=== PATIENT | male | born 1950 | race Caucasian/White ===

== ENCOUNTER 2016-09-21 08:46 | Inpatient (IN) | payer OTHER ==
[~2016-09-21] VITALS: Ht 165.1 cm; Wt 69.9 kg
--- NOTE | 2016-09-21 08:54 | NUR ---
65 Y/O MALE C/O DEPRESSION "FOR A WHILE". PT DIFFICULT TO GET ANSWERS OUT OF, VAGUE ANSWERING QUESTIONS. WHEN ASKED ABOUT SI, STATES "I SHOULD". WHEN ASKED ABOUT HI, "IT DIDN'T START THAT WAY BUT IT WILL QUALITY CONTROL MANAGER TO BE YES". PT REPORTS NOT TAKING HIS MEDICINE "CONSISTENTLY". ALSO C/O "VERY LITTLE URINE BEING PRODUCED". PT DENIES DRUG OR ALCOHOL USE. FLAT AFFECT NOTED DOES STATE HE SEES DR BOWLING, "I SEE HER OFTEN SHE WANTS TO SEE ME".
--- NOTE | 2016-09-21 08:58 | NUR ---
PT AMBULATORY TO [facility], WAITING FOR PROVIDER EVALUATION
--- NOTE | 2016-09-21 09:08 | NUR ---
DR ELWIS AT BEDSIDE FOR EVALUATION
--- NOTE | 2016-09-21 09:13 | ED PSYCHIATRIC COMPLAINT ---
See Addendum History of Present Illness General Chief Complaint: Psychiatric Related Complaint Stated Complaint: depression "I HAVE HURT A LOT OF PEOPLE" Source: patient Exam Limitations: acute psychiatric disorder Vital Signs & Intake/Output Vital Signs & Intake/Output Vital Signs Date Time Temp Pulse Resp B/P Pulse O2 O2 Flow FiO2 Ox Delivery Rate 09/21 1445 98.2 100 18 138/68 09/21 1155 98.1 98 18 126/82 94 Room Air 09/21 0853 97.6 114 18 145/94 99 Room Air Allergies Coded Allergies: No Known Allergies (11/12/15) Triage Note: 65 Y/O MALE C/O DEPRESSION "FOR A WHILE". PT DIFFICULT TO GET ANSWERS OUT OF, VAGUE ANSWERING QUESTIONS. WHEN ASKED ABOUT SI, STATES "I SHOULD". WHEN ASKED ABOUT HI, "IT DIDN'T START THAT WAY BUT IT WILL LOGISTICS ADMINISTRATOR TO BE YES". PT REPORTS NOT TAKING HIS MEDICINE "CONSISTENTLY". ALSO C/O "VERY LITTLE URINE BEING PRODUCED". PT DENIES DRUG OR ALCOHOL USE. FLAT AFFECT NOTED DOES STATE HE SEES DR BOWLING, "I SEE HER OFTEN SHE WANTS TO SEE ME". Triage Nurses Notes Reviewed? yes HPI: Patient presents for evaluation of "mental problems". Patient states he "feels like I have to 09 up to everything". History is very limited as the patient is exhibiting serious psychomotor retardation. He does deny suicidal homicidal ideation he denies hearing voices. He states that he has done "irreparable damage"but does not specify otherwise. He has been compliant with generic Effexor for history of depression and denies alcohol or drug use. Past History Travel History Traveled to [place] past 21 day No Medical History Any Pertinent Medical History? see below for history Neurological: NONE EENT: NONE Cardiovascular: NONE Respiratory: NONE Gastrointestinal: NONE Hepatic: NONE Renal: NONE Musculoskeletal: NONE Psychiatric: depression Endocrine: NONE Blood Disorders: NONE Cancer(s): NONE TILE HELPER/Reproductive: NONE Surgical History Surgical History: non-contributory Psychosocial History What is your primary language Citizen Of [place] Tobacco Use: Never used Family History Hx Contributory? No Review of Systems Review of Systems Constitutional: Reports: no symptoms. EENTM: Reports: no symptoms. Respiratory: Reports: no symptoms. Cardiovascular: Reports: no symptoms. GI: Reports: no symptoms. Genitourinary: Reports: no symptoms. Musculoskeletal: Reports: no symptoms. Skin: Reports: no symptoms. Neurological/Psychological: Reports: see HPI. Hematologic/Endocrine: Reports: no symptoms. Immunologic/Allergic: Reports: no symptoms. All Other Systems: Reviewed and Negative Physical Exam Physical Exam General Appearance: see below Neurological/Psychiatric: see below Comments: General: Alert, calm, cooperative, distant affect at times Head: Normocephalic, atraumatic Eyes: Normal inspection, no nystagmus, EOMI Ears: Normal inspection Nose: Normal inspection Throat: Moist mucosa Neck: Supple, no goiter Heart: Regular rate and rhythm, no murmurs rubs or gallops Lungs: Clear to auscultation bilaterally with good air entry Abdomen: Soft nontender nondistended, normal bowel sounds Chest: Nontender Extremities: Normal range of motion grossly, mild tremors present, no cyanosis clubbing or edema of the upper extremities Neurologic: cranial nerves II through XII grossly intact, speech clear, gait normal Psychiatric: No apparent delusions or hallucinations, no pressured speech, question of thought blocking versus difficulty concentrating as reflected by long pauses to answer questions SAD PERSONS Done? DEFERRED TO CRISIS Progress Differential Diagnosis: acute psychiatric disorder Plan of Care: Orders Procedure Date/time Status ED CRISIS PSYCH CONSULT 09/21 100 Active URINE DRUG SCREEN FOR ER ONLY 09/21 911 Complete TSH REFLEX 09/21 911 Complete ETHANOL 09/21 911 Complete CBC WITHOUT DIFFERENTIAL 09/21 911 Complete BASIC METABOLIC PANEL 09/21 911 Complete Current Medications Sig/Dyllan Start time Last Medication Dose Stop Time Status Admin Olanzapine 10 MG ONCE ONE 09/21 1714 UNVr (ZYDIS (Orally 09/21 1715 disintegrating tabs)) Venlafaxine HCl 75 MG ONCE ONE 09/21 1714 UNVr (Effexor Xr) 09/21 1715 Laboratory Tests 09/21/16 1102: Anion Gap 16, Estimated GFR > 60, BUN/Creatinine Ratio 12.9, Glucose 126 H, Calcium 9.7, TSH &T3 &Free T4 Intrp 0.586, CBC w Diff NO MAN DIFF REQ, RBC 4.71, MCV 90.6, MCH 31.3 H, RDW 13.3, MPV 8.2, Gran % 64.5, Lymphocytes % 27.7, Monocytes % 7.1, Eosinophils % 0.2, Basophils % 0.5, Absolute Granulocytes 4.4, Absolute Lymphocytes 1.9, Absolute Monocytes 0.5, Absolute Eosinophils 0, Absolute Basophils 0, PUBS MCHC 34.5, Serum Alcohol < 10.0 09/21/16 0917: Urine Opiates Screen < 100.00, Methadone Screen < 40, Barbiturate Screen < 60, Ur Phencyclidine Scrn < 6.00, Amphetamines Screen < 100, U Benzodiazepines Scrn < 85, Urine Cocaine Screen < 50, Urine Cannabis Screen < 5.00 Comments: 09/21/2016 3:15:37 PM I HAVE UPDATED MARLEN ON TEST RESULTS. VERY BUSY DAY TODAY. EXPECTING ADDITIONAL CRISIS CLINICIANS SHORTLY. 09/21/2016 5:00:50 PM patient has been evaluated by the residential designer. Likely to be admitted. 09/21/2016 5:10:07 PM PT TO BE MEDICATED AND REEVALUATED AM. Departure Departure Disposition: STILL A PATIENT Condition: Stable Clinical Impression Primary Impression: Depression Referrals: CHEY ALTAMIRANO,ENRRIQUE Lowe (PCP/Family) Departure Forms: Customer Survey General Discharge Information
--- NOTE | 2016-09-21 09:20 | NUR ---
COLLECTED PATIENT'S URINE AND SENT TO LAB PATIENT REFUSING TO HAVE HIS BLOOD DRAWN.
--- NOTE | 2016-09-21 10:58 | NUR ---
PT CONTINUES TO REFUSE BLOODWORK FROM [facility] STAFF [employer]BERS. DR LEWIS AWARE AND AT BEDSIDE. SPEAKING WITH PT.
--- NOTE | 2016-09-21 11:00 | NUR ---
PT NOW AGREEABLE FOR BLOODWORK, KESHAV SY AT BEDSIDE FOR BLOOD DRAW.
--- NOTE | 2016-09-21 11:05 | NUR ---
BLOOD DRAWN AND SENT TO LAB 2 SST 1 LAV
[2016-09-21 11:10] LABS: ABSOLUTE BASOPHIL COUNT 0 /CUMM (0.0-0.2); ABSOLUTE EOSINOPHIL COUNT 0 /CUMM (0.0-0.7); ABSOLUTE GRANULOCYTE CT 4.4 /CUMM (1.4-6.5); ABSOLUTE LYMPH COUNT 1.9 /CUMM (1.2-3.4); ABSOLUTE MONOCYTE COUNT 0.5 /CUMM (0.10-0.60); BASOPHIL % 0.5 % (0.0-2.0); EOSINOPHIL % 0.2 % (0-5); GRANULOCYTE % 64.5 % (42.2-75.2); HEMATOCRIT 42.7 % (42-52); MEAN CORPUSCULAR HGB 31.3 PG (27.0-31.0); MEAN CORPUSCULAR HGB CONC 34.5 G/DL (33.0-37.0); MEAN CORPUSCULAR VOLUME 90.6 FL (80.0-94.0); MEAN PLATELET VOLUME 8.2 FL (7.4-10.4); PLATELET COUNT 371 /CUMM (130-400); RBC DISTRIBUTION WIDTH 13.3 % (11.5-14.5); RED BLOOD CELL CT 4.71 /CUMM (4.70-6.10); WHITE BLOOD CELL COUNT 6.8 /CUMM (4.8-10.8)
--- NOTE | 2016-09-21 13:48 | ED PSY CRISIS COLLATERAL NOTE ---
Collateral Note Collateral Note Family/Inform/Leslee Contacts: The patient has been with [facility] since August of 2013. SW attempted to gain collateral from Alysia Go and Dr. Samano. Alysia reports that she does not know this patient well and the last time she covered an outpatient group, he did not show up. Dr. Samano is familiar with the patient and believes that they have made some recent medication adjustments and that he may be psychotic at this time. Dr. Samano is going to take a look at her records and call Crisis back with further collateral.
--- NOTE | 2016-09-21 15:51 | NUR ---
ASSUMED CARE OF THIS PT PER RN PAT, PT HESITANT TO SPEAK WITH THIS RN, PT STATES "I SI BUT I DONT HAVE A PLAN AND I THINK ABOUT HURTING PEOPLE SOMETIMES BUT IT HASNT GOTTEN TO THAT POINT YET". PT QUIET AND STATES HE HAS NOT BEEN COMPLIANT WITH HIS MEDICATIONS. PT RESTING ON STRETCHER LEAL E, WILL CONTINUE TO MONITOR, SITTER IN PLACE IN
--- NOTE | 2016-09-21 16:03 | NUR ---
PT MOVED TO RM 15.
--- NOTE | 2016-09-21 16:52 | ED PSYCH CRISIS CONSULTATION ---
See Addendum Crisis Consult Basic Assessment Date of Consult: 09/21/16 Responsible Person/Accompanied By: self Insurance Authorization: Insurance #1: Insurance name: [employer] Phone number: Policy number: [id number] Group number: [id number] Authorization number: ED Provider: Patient's ED Provider: PHOENIX LEWIS MD Primary Care Physician: Patient's PCP: ENRRIQUE GUERRIER MD PCP's Current Psychiatrist: Soco Samano MD Chief Complaint: Psychiatric Related Complaint Patient's Quote: i made a lot of bad decisions Present Illness: Pt is a 65 yo male presenting at [facility] ED this morning with complaints of increasing depression and feeling guilty. He reports prior SI and a [facility] admission in 2007. He has been active in [facility] for several years and is treated by Dr Samano. Pt also expresses vague statements that he may hurt others and has made major bad financial decisions. When asked what kind of help he was looking for when he came to ED he responded " I need to go to [facility]". Pt clarified that he didn't think he would hurt anyone physically but is bringing emotional and financial hurt to members of his family. He has a prior diagnosis of MDD with psychosis and is prescribed effexor 225mg with zyprexa d/c in June. he reports he hasn't been taking the effexor consistently. He denies etoh and non-prescription drug use. Pt presents as depressed, flat affect, delayed and vague response to questions, paranoid. He denies AH/VH but appears to be experiencing internal stumuli. He expressed hestitancy about needing an admission but stated he would comply with whatever the dr recommendation. Patient's Address: [address] [place] [id number] Other Phone Number: Who Do You Live With? Patient/Self Family/Informants Interviewed: collateral provided by brother Nahum [phone] and sister Mitzi [phone] Allergies - Coded Allergies: No Known Allergies (11/12/15) Laboratory Results: Laboratory Tests 09/21/16 1102: Anion Gap 16, Estimated GFR > 60, BUN/Creatinine Ratio 12.9, Glucose 126 H, Calcium 9.7, TSH &T3 &Free T4 Intrp 0.586, CBC w Diff NO MAN DIFF REQ, RBC 4.71, MCV 90.6, MCH 31.3 H, RDW 13.3, MPV 8.2, Gran % 64.5, Lymphocytes % 27.7, Monocytes % 7.1, Eosinophils % 0.2, Basophils % 0.5, Absolute Granulocytes 4.4, Absolute Lymphocytes 1.9, Absolute Monocytes 0.5, Absolute Eosinophils 0, Absolute Basophils 0, PUBS MCHC 34.5, Serum Alcohol < 10.0 09/21/16 0917: Urine Opiates Screen < 100.00, Methadone Screen < 40, Barbiturate Screen < 60, Ur Phencyclidine Scrn < 6.00, Amphetamines Screen < 100, U Benzodiazepines Scrn < 85, Urine Cocaine Screen < 50, Urine Cannabis Screen < 5.00 (PRIYA VIVAR LCSW) Past History Past Medical History Neurological: NONE EENT: NONE Cardiovascular: NONE Respiratory: NONE Gastrointestinal: NONE Hepatic: NONE Renal: NONE Musculoskeletal: NONE Psychiatric: depression Endocrine: NONE Blood Disorders: NONE Cancer(s): NONE FITNESS SALES ASSOCIATE/Reproductive: NONE Past Surgical History Surgical History: non-contributory Psychosocial History Strengths/Capabilities: retired/worked 40+ yrs at [employer]. Owns home. Engaged with [employer] for several yrs. Psychiatric Treatment History Psych Treatment Psychiatric Treatment Yes Inpatient Treatment Yes Outpatient Treatment Yes Location of Treatment -[facility] 2007; [facility]-current Reason for Treatment MDD. 2007 SI Response to Treatment has been stable and engaged in [facility] for several yrs. Recently reports inconsistent medication compliance. 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 No substance use. (PRIYA VIVAR LCSW) Current Mental Status Mental Status Orientation: Person, Place, Situation Affect: Anxious, Depressed, Flat Speech: Delayed Neuro-vegetative: Sleep Disturbance Appearance Appearance- Dress/Hygiene: hospital scrubs. wears glasses. Sat upright in consultation rm during evaluation. long pauses in answering questions. denies psychosis but unclear if he is experiencing internal stimuli. Behaviors Thought Process: Irrational (vague answers), Thought Blocking Thought Content: Paranoid, Thought Blocking Memory: Impaired Insight: Poor SI/HI Risk Assessment Past Suicidal Ideation/Attempts Yes (2007 SI/admit to [facility]) Current Suicidal Ideation/Att Yes Past Homicidal Ideation/Att: No Current Homicidal Ideation/Attempts No Degree of Intent: Thoughts/No Intent Danger To: Self Gravely Disabled: Lack of Insight Risk Factors: age (under 24/over 65), high anxiety/distress, history of suicide atmpts, SA/MH hospitalized, lives alone, male Lethality Ratin PTSD Checklist PTSD Done? 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 Family reports pt appeared to be doing well but tends to isolate and maintains a rigid schedule. (PRIYA VIVAR LCSW) Departure Disposition Psych Medical Clearance Date: 09/21/16 Medically Cleared at: 1600 Time Started: 1605 Time Ended: 1645 Psychiatrist Consulted: Soco Samano MD Date Disposition Established: 09/21/16 Time Disposition Established: 171 Plan for Disposition - Modality: H/O re-eval Facility: [facility] Rationale for Disposition: Dr Samano recommends pt be re-started on Zyprexa 10mg and order effexor 75mg. Re- eval pt in am to determine if thought process begins to clear. She reports pt has been doing well so they had recently d/c zyprexa and his psychosis may have returned. Referrals ENRRIQUE GUERRIER MD (PCP/Family) (PRIYA VIVAR LCSW) Disposition Psych Medical Clearance Date: 09/22/16 Medically Cleared at: 0800 Time Started: 0800 Time Ended: 0830 Psychiatrist Consulted: Soco Samano MD Disposition Established: 09/22/16 Time Disposition Established: 0900 Plan for Disposition - Modality: Inpatient Psychiatry Facility: [facility] Rationale for Disposition: Pt is currently exhibiting psychotic sx and expressing thoughts that others wilkl be harmed Type of IP Admission: PEC (JASON HERNANDEZ LCSW) Addendum Addendum Pt was re-evaluated by crisis this morning. Pt continues to thought block. He is barely able to express himself verbally. The words he does express are incomplete sentences. His responses are extremely delayed. Expressions are non- sensical as well as paranoid and delusional in nature. Pt expresses feelings of guilt and worry that others will be harmed. (DAVID YUEN,JASON)
--- NOTE | 2016-09-21 18:39 | NUR ---
PT MEDICATED WITH 75MG EFFEXOR PO AND 10MG ZYDIS PO PER EMAR. PT HAS VISITOR (FRIEND) IN RM WITH PT.
--- NOTE | 2016-09-21 19:30 | NUR ---
PT AWAKE. SITTING ON BED. NO APPARENT DISTRESS. SITTER IN HALLWAY
--- NOTE | 2016-09-21 20:29 | ED PSY CRISIS COLLATERAL NOTE ---
Collateral Note Collateral Note Family/Inform/Leslee Contacts: crisis gathered collateral from pt brother Nahum [phone] and sister Mitzi [phone]. they report being surprised that he is presenting in ED because he has appeared to be doing very well recently. He has consistent contact with his siblings and had visits with both brother and sister over the holidays and appeared fine. They report he retired from [employer] last yr after 40+ yrs and previously was active with [employer] dept. they described him as a bit of a loner "hermit", keeps to himself and maintains a rigid routine. They report he gets a lot of support from his siblings. they report he owns a home and are not aware of him having any significant financial stressors.
--- NOTE | 2016-09-21 20:34 | ED PSY CRISIS COLLATERAL NOTE ---
Collateral Note Collateral Note Family/Inform/Leslee Contacts: collateral from pt brother Rafael - (h)-[phone]/ sharlene (c) [phone]. Rafael and Sharlene in ED visiting pt. Rafael report pt presenting 180 degrees differently from last contact. he reports pt is persverating on financial worries that are not reality based. he reports pt is calling himself the devil. Rafael thinks pt is a grave safety risk and not safe to be discharged. Crisis informed rafael that pt is being h/o and will be re-evaluated in the morning. Rafael stressed that he would like to be in contact with blind aide who evaluates in am.
--- NOTE | 2016-09-21 22:14 | NUR ---
PT SLEEPING. EASILY AROUSED TO VERBAL STIMULATION. RESP UNLABORED. NO APPARENT DISTRESS. SITTER IN HALLWAY
--- NOTE | 2016-09-22 01:27 | NUR ---
PT SLEEPING. RESP UNLABORED. NO APPARENT DISTRESS. SITTER IN HALLWAY
--- NOTE | 2016-09-22 07:25 | NUR ---
ASSUMED CARE OF PT AT THIS TIME. PT SLEEPING ON STRETCHER, REG RESP RATE NOTED. SITTER REMAINS PRESENT. WILL CTM
--- NOTE | 2016-09-22 08:23 | NUR ---
PTS BROTHER ALBERTO WOULD LIKE TO BE CALLED WITH ANY NEW UPDATES [phone]
--- NOTE | 2016-09-22 08:34 | NUR ---
Brother requesting information regarding brother's care and status. Pt does not want information shared at this time. Brother is stating that his brother has not yet been seen and that he can't be released because he is unstable. Brother reassured that patient is safe and being evaluated and that at this time no information couldnt be given due to patient not wanting info shared.
--- NOTE | 2016-09-22 10:15 | NUR ---
REPORT GIVEN TO [facility]
--- NOTE | 2016-09-22 10:15 | NUR ---
PT SHOWERED, ATE BREAKFAST AND TOOK MORNING MEDICATIONS. PT HAS NO COMPLAINTS AT THIS TIME. WILL GIVE REPORT TO [facility]PS
--- NOTE | 2016-09-22 10:42 | IP CRISIS DIAG ASSESS PSYCH ---
Diagnostic Assessment Basic Assessment Insurance Authorization: Insurance #1: Insurance name: [employer]RA Phone number: [phone] Policy number: [id number] Group number: [id number] Authorization number: [id number] Lucian authorized 6 days starting 09/22/16 with review on 09/27/16. Primary Care Physician: Patient's PCP: ENRRIQUE GUERRIER MD PCP's Patient's Quote: i made a lot of bad decisions Present Illness: Pt is a 65 yo male presenting at [facility] this morning with complaints of increasing depression and feeling guilty. He reports prior SI and a [facility] admission in 2007. He has been active in [facility] for several years and is treated by Dr Samano. Pt also expresses vague statements that he may hurt others and has made major bad financial decisions. When asked what kind of help he was looking for when he came to ED he responded " I need to go to halfway". Pt clarified that he didn't think he would hurt anyone physically but is bringing emotional and financial hurt to members of his family. He has a prior diagnosis of MDD with psychosis and is prescribed effexor 225mg with zyprexa d/c in June. he reports he hasn't been taking the effexor consistently. He denies etoh and non-prescription drug use. Pt presents as depressed, flat affect, delayed and vague response to questions, paranoid. He denies AH/VH but appears to be experiencing internal stumuli. He expressed hestitancy about needing an admission but stated he would comply with whatever the dr recommendation. Dr Samano recommends pt be re-started on Zyprexa 10mg and order effexor 75mg. Re- eval pt in am to determine if thought process begins to clear. She reports pt has been doing well so they had recently d/c zyprexa and his psychosis may have returned. crisis gathered collateral from pt brother Nahum [phone] and sister Mitzi [phone]. they report being surprised that he is presenting in ED because he has appeared to be doing very well recently. He has consistent contact with his siblings and had visits with both brother and sister over the holidays and appeared fine. They report he retired from [employer] last yr after 40+ yrs and previously was active with [employer] dept. they described him as a bit of a loner "hermit", keeps to himself and maintains a rigid routine. They report he gets a lot of support from his siblings. they report he owns a home and are not aware of him having any significant financial stressors. collateral from pt brother Rafael - (h)-[phone]/ sharlene (c) [phone]. Rafael and Sharlene in ED visiting pt. Rafael report pt presenting 180 degrees differently from last contact. he reports pt is persverating on financial worries that are not reality based. he reports pt is calling himself the devil. Rafael thinks pt is a grave safety risk and not safe to be discharged. Crisis informed rafael that pt is being h/o and will be re-evaluated in the morning. Rafael stressed that he would like to be in contact with centrifugal wax molder who evaluates in am. PRIYA VIVAR [facility]> 09/21/16 The patient has been with [facility] since August of 2013. SW attempted to gain collateral from Alysia Go and Dr. Samano. Alysia reports that she does not know this patient well and the last time she covered an outpatient group, he did not show up. Dr. Samano is familiar with the patient and believes that they have made some recent medication adjustments and that he may be psychotic at this time. Dr. Samano is going to take a look at her records and call Crisis back with further collateral. JANETT CARDENAS [facility]> 09/21/16 Pt was re-evaluated by crisis this morning. Pt continues to thought block. He is barely able to express himself verbally. The words he does express are incomplete sentences. His responses are extremely delayed. Expressions are non- sensical as well as paranoid and delusional in nature. Pt expresses feelings of guilt and worry that others will be harmed. Case reviewed with Dr. Samano and pt will be admitted to [facility] on a PEC. Pt's brother Rafael notified. Information on diagnostic assessment is limited due to pt's inability to answer questions due to his thought blocking. JASONHUBER WYLIEJORGE L [facility]> 01/06/17 Patient's Address: [address] [place] [id number] Other Phone Number: Who Do You Live With? Patient/Self Primary Language? Cymraes Family/Informants Interviewed: collateral provided by brother Nahum [phone] and sister Mitzi [phone] Allergies - Coded Allergies: No Known Allergies (11/12/15) Current Medications - No Known Home Medications Past History Abuse/Trauma History Trauma History/Current Trauma: unknown ( ) Psychosocial History Strengths/Capabilities: retired/worked 40+ yrs at [employer]. Owns home. Engaged with [employer] for several yrs. Psychiatric Treatment History Psych Treatment Psychiatric Treatment Yes Inpatient Treatment Yes [place]patient Treatment Yes [facility] [place] Reason for Treatment MDD. 2007 SI Response to Treatment has been stable and engaged in [facility] for several yrs. Recently reports inconsistent medication compliance. Zyprexa d/c June 2016 Diagnosis by History: Major Depressive D/O with psychosis - paranoid Risk Factors: age (under 24/over 65), high anxiety/distress, history of suicide atmpts, SA/MH hospitalized, lives alone, male Substance Use/Abuse History Drug Use/Abuse minimum 12mo Hx Substances Used/Abused No Substance Abuse Treatment Substance Abuse Treatment Past Substance Abuse TX No Current Mental Status Mental Status Orientation: Person, Place, Situation Affect: Anxious, Depressed, Flat Speech: Delayed Neuro-vegetative: Sleep Disturbance Appearance Appearance- Dress/Hygiene: hospital scrubs. wears glasses. Sat upright in consultation rm during evaluation. long pauses in answering questions. denies psychosis but unclear if he is experiencing internal stimuli. Behaviors Thought Process: Irrational (vague answers), Thought Blocking Thought Content: Paranoid, Thought Blocking Memory: Impaired Insight: Poor SI/HI Risk Assessment - Minimum 6mo History- Past Suicidal Ideation/Attempts Yes (2007 SI/admit to [facility]) Current Suicidal Ideation/Att Yes Past Homicidal Ideation/Att: No Current Homicidal Ideation/Attempts No Degree of Intent: Thoughts/No Intent Danger To: Self Gravely Disabled: Lack of Insight Risk Factors: age (under 24/over 65), high anxiety/distress, history of suicide atmpts, SA/MH hospitalized, lives alone, male Lethality Ratin Needs/Init TX Plan/Goals: safety and stabilization of sx, individual group and family therapy med eval. AUDIT-C Questionnaire: AUDIT-C Questionnaire: Response Value ETOH use in the past year Never 0 # drinks typical/day Doesn't Drink 0 6 or > drinks per occasion Never 0 Total 0 DSM5/PS Stressors/Medical Prob Diagnosis' (DSM 5, Stressors, Medical): Unspecified Schizophrenia Spectrum and other Psychotic Disorders F29, Major Depressive Disorder 296.2/f32.3 financial Current GAF: 30 Comments: Pt has been alf active [facility] and recently had Zyprexa d/c. Family reports pt appeared to be doing well but tends to isolate and maintains a rigid schedule.
--- NOTE | 2016-09-22 11:05 | SOCIAL WORKER SOCIAL HX PSYCH ---
Social History Basic Assessment Insurance Authorization: Insurance #1: Insurance name: [employer]RA Phone number: Policy number: [id number] Group number: [id number] Authorization number: Curr Source of Income/Entitlements: retired Primary Care Physician: Patient's PCP: ENRRIQUE GUERRIER MD PCP's Present Problem: Pt is a 65 yo male presenting at [facility] this morning with complaints of increasing depression and feeling guilty. He reports prior SI and a [facility] admission in 2007. He has been active in [facility] for several years and is treated by Dr Samano. Pt also expresses vague statements that he may hurt others and has made major bad financial decisions. When asked what kind of help he was looking for when he came to ED he responded " I need to go to half-way". Pt clarified that he didn't think he would hurt anyone physically but is bringing emotional and financial hurt to members of his family. He has a prior diagnosis of MDD with psychosis and is prescribed effexor 225mg with zyprexa d/c in June. he reports he hasn't been taking the effexor consistently. He denies etoh and non-prescription drug use. Pt presents as depressed, flat affect, delayed and vague response to questions, paranoid. He denies AH/VH but appears to be experiencing internal stumuli. He expressed hestitancy about needing an admission but stated he would comply with whatever the dr recommendation. Dr Samano recommends pt be re-started on Zyprexa 10mg and order effexor 75mg. Re- eval pt in am to determine if thought process begins to clear. She reports pt has been doing well so they had recently d/c zyprexa and his psychosis may have returned. crisis gathered collateral from pt brother Nahum [phone] and sister Mitzi [phone]. they report being surprised that he is presenting in ED because he has appeared to be doing very well recently. He has consistent contact with his siblings and had visits with both brother and sister over the holidays and appeared fine. They report he retired from [employer] last yr after 40+ yrs and previously was active with [employer] dept. they described him as a bit of a loner "hermit", keeps to himself and maintains a rigid routine. They report he gets a lot of support from his siblings. they report he owns a home and are not aware of him having any significant financial stressors. collateral from pt brother Rafael - (h)-[phone]/ sharlene (c) [phone]. Rafeal and Sharlene in ED visiting pt. Rafael report pt presenting 180 degrees differently from last contact. he reports pt is persverating on financial worries that are not reality based. he reports pt is calling himself the devil. Rafael thinks pt is a grave safety risk and not safe to be discharged. Crisis informed rafael that pt is being h/o and will be re-evaluated in the morning. Rafael stressed that he would like to be in contact with factory supervisor who evaluates in am. PRIYA VIVAR [facility]> 09/21/16 The patient has been with [facility] since August of 2013. SW attempted to gain collateral from Alysia Go and Dr. Samano. Alysia reports that she does not know this patient well and the last time she covered an outpatient group, he did not show up. Dr. Samano is familiar with the patient and believes that they have made some recent medication adjustments and that he may be psychotic at this time. Dr. Samano is going to take a look at her records and call Crisis back with further collateral. JANETT CARDENAS [facility]> 09/21/16 Pt was re-evaluated by crisis this morning. Pt continues to thought block. He is barely able to express himself verbally. The words he does express are incomplete sentences. His responses are extremely delayed. Expressions are non- sensical as well as paranoid and delusional in nature. Pt expresses feelings of guilt and worry that others will be harmed. Case reviewed with Dr. Samano and pt will be admitted to [facility] on a [facility]. Pt's brother Rafael notified. Information on social hx is very limited due to pt's inability to answer questions due to his thought blocking. JASON HERNANDEZ [facility]> 09/22/16 Primary Language? [place] Island[place] Language(s) Spoken At Home: [place] Living Situation Rents or Owns Home? owns Other Living Arrangement: lives alone Allergies - Coded Allergies: No Known Allergies (11/12/15) Current Medications - No Known Home Medications Past History Past Medical History Neurological: NONE EENT: NONE Cardiovascular: NONE Respiratory: NONE Gastrointestinal: NONE Hepatic: NONE Renal: NONE Musculoskeletal: NONE Psychiatric: depression Endocrine: NONE Blood Disorders: NONE Cancer(s): NONE BROADCAST PROGRAM DIRECTOR/Reproductive: NONE Past Surgical History Surgical History: non-contributory /Family History Place/Country of Origin: unable to answer due to thought blocking Childhood Family Constellation: unable to answer due to thought blocking Primary Childhood Caretakers: unable to answer due to thought blocking Family Life During Childhood: unable to answer due to thought blocking Relationship w/Mother: unable to answer due to thought blocking Relationship w/Father: unable to answer due to thought blocking Relationship w/Sibling(s): unable to answer due to thought blocking Relationship w/Friends: unable to answer due to thought blocking Family Psych/Sub Abuse/Add Hx: unable to answer due to thought blocking Abuse/Trauma History Trauma History/Current Trauma: unknown (unable to answer) Legal History Current Legal Status: unknown Pending Court Dates: unknown Psychosocial History Primary Support System: sibling(s) Strengths/Capabilities: retired/worked 40+ yrs at [employer]. Owns home. Engaged with [employer] for several yrs. Weaknesses: unable to answer due to thought blocking Physical Limitations (Interventions): none reported Last Physical: unknown ADL Limitations: none reported Petty/Social/Peer Relations unable to answer due to thought blocking Meaningful Activities: unable to answer due to thought blocking Childhood Restorationist: Taoist Current Sikhism Affiliation: Taoist Is Spirituality Important to You? unable to answer due to thought blocking Cultural/Ethnic Issues: unknown Milestones Achieved: fine motor, gross motor Psychiatric Treatment History Psych Treatment Inpatient Treatment Yes Outpatient Treatment Yes Location of Treatment -[facility]; [facility]-current Reason for Treatment MDD. 2007 SI Response to Treatment has been stable and engaged in [employer] for several yrs. Recently reports inconsistent medication compliance. Zyprexa d/c June 2016 Diagnosis: Major Depressive D/O with psychosis - paranoid Risk Factors: age (under 24/over 65), high anxiety/distress, history of suicide atmpts, SA/MH hospitalized, lives alone, male Education History HX of Learning Difficulties: None reported Barriers to Learning: None reported Special Communication Needs: None reported Employment History Employment Retired Current Mental Status Problem List: 1. Depression Mental Status Orientation: Person, Place, Situation Affect: Anxious, Depressed, Flat Speech: Delayed Neuro-vegetative: Sleep Disturbance Appearance Appearance- Dress/Hygiene: hospital scrubs. wears glasses. Sat upright in consultation during evaluation. long pauses in answering questions. denies psychosis but unclear if he is experiencing internal stimuli. Behaviors Thought Process: Irrational (vague answers), Thought Blocking Thought Content: Paranoid, Thought Blocking Memory: Impaired Insight: Poor SI/HI Risk Assessment Past Suicidal Ideation/Attempts Yes (2007 SI/admit to [facility]) Current Suicidal Ideation/Att Yes Past Homicidal Ideation/Att: No Current Homicidal Ideation/Attempts No Degree of Intent: Thoughts/No Intent Danger To: Self Gravely Disabled: Lack of Insight Risk Factors: High Anxiety/Distress, SA/MH Hospitalization(s), Lives alone, Male Lethality Ratin - Conclusion and Recommendations for treatment - and discharge planning Summary: Pt is a 65 yo male presenting at [facility] this morning with complaints of increasing depression and feeling guilty. He reports prior SI and a [facility] admission in 2007. He has been active in [facility] for several years and is treated by Dr Samano. Pt also expresses vague statements that he may hurt others and has made major bad financial decisions. When asked what kind of help he was looking for when he came to ED he responded " I need to go to half-way". Pt clarified that he didn't think he would hurt anyone physically but is bringing emotional and financial hurt to members of his family. He has a prior diagnosis of MDD with psychosis and is prescribed effexor 225mg with zyprexa d/c in June. he reports he hasn't been taking the effexor consistently. He denies etoh and non-prescription drug use. Pt presents as depressed, flat affect, delayed and vague response to questions, paranoid. He denies AH/VH but appears to be experiencing internal stumuli. He expressed hestitancy about needing an admission but stated he would comply with whatever the dr recommendation. Dr Samano recommends pt be re-started on Zyprexa 10mg and order effexor 75mg. Re- eval pt in am to determine if thought process begins to clear. She reports pt has been doing well so they had recently d/c zyprexa and his psychosis may have returned. crisis gathered collateral from pt brother Nahum [phone] and sister Mitzi [phone]. they report being surprised that he is presenting in ED because he has appeared to be doing very well recently. He has consistent contact with his siblings and had visits with both brother and sister over the holidays and appeared fine. They report he retired from [employer] last yr after 40+ yrs and previously was active with [employer] dept. they described him as a bit of a loner "hermit", keeps to himself and maintains a rigid routine. They report he gets a lot of support from his siblings. they report he owns a home and are not aware of him having any significant financial stressors. collateral from pt brother Rafael - (h)-[phone]/ sharlene (c) [phone]. Rafael and Sharlene in ED visiting pt. Rafael report pt presenting 180 degrees differently from last contact. he reports pt is persverating on financial worries that are not reality based. he reports pt is calling himself the devil. Rafael thinks pt is a grave safety risk and not safe to be discharged. Crisis informed rafael that pt is being h/o and will be re-evaluated in the morning. Rafael stressed that he would like to be in contact with factory supervisor who evaluates in am. PRIYA VIVAR [facility]> 09/21/16 The patient has been with [facility] since August of 2013. SW attempted to gain collateral from Alysia Go and Dr. Samano. Alysia reports that she does not know this patient well and the last time she covered an outpatient group, he did not show up. Dr. Samano is familiar with the patient and believes that they have made some recent medication adjustments and that he may be psychotic at this time. Dr. Samano is going to take a look at her records and call Crisis back with further collateral. JANETT CARDENAS [facility]> 09/21/16 Pt was re-evaluated by crisis this morning. Pt continues to thought block. He is barely able to express himself verbally. The words he does express are incomplete sentences. His responses are extremely delayed. Expressions are non- sensical as well as paranoid and delusional in nature. Pt expresses feelings of guilt and worry that others will be harmed. Case reviewed with Dr. Samano and pt will be admitted to [facility] on a PEC. Pt's brother Rafael notified. Information on social hx is very limited due to pt's inability to answer questions due to his thought blocking. JASON HERNANDEZ TECHNIC[facility]> 09/22/16
--- NOTE | 2016-09-22 11:06 | NUR ---
DISTRIBUTION HERE TO TRANSPORT PT
[2016-09-22] MEDS ORDERED: CRESTOR20 M2 PO (11:58)
[2016-09-22] MEDS ORDERED: ZETIA10 M1 PO ×2 (11:59→20:32)
[2016-09-22] MEDS ORDERED: EFFEXOR XR75 M1 PO ×2 (12:01→20:38)
[2016-09-22] MEDS ORDERED: ZYPREXA2.5 M1 PO (12:02)
--- NOTE | 2016-09-22 12:34 | NUR ---
65 Y/O MALE ADMITTED ON PEC TO [facility].. PT IS SEEN IN OUT PT BY DR BOWLING FOR DEPRESSION BUT RECENTLY PT HAS PRESENTED DISORGANIZED AND PARANOID WITH THOUGHTS THAT PEOPLE ARE OUT TO GET HIM OR THAT PEOPLE ARE GOING TO GET HURT. HE IS NOT SPECIFIC ABOUT WHICH PEOPLE AND HE HAS NO SPECIFIC PLAN. HE DENIES SUICIDAL IDEATION AT THIS TIME. HIS RESPONSES ARE SLOWED AND HE APPEARS TO BE THOUGHT BLOCKING. HE DENIED AH ALTHOUGH HE APPEARS DISTRACTED. HE STATES IT IS HIS OWN VOICE IN HIS HEAD. HE IS CALM AND COOPERATIVE WITH THE ADMISSION INTERVIEW. VSS.DR GUERRIER OFFICE NOTIFIED OF NEED FOR H&P
[2016-09-22 12:44] VITALS: BP 140/69
[2016-09-22 16:11] VITALS: BP 136/78
[2016-09-22 19:44] VITALS: BP 157/83
[2016-09-22] MEDS ORDERED: LIPITOR40 M1 PO (20:35)
[2016-09-22] MEDS ORDERED: ZYPREXA10 M1 PO (20:37)
--- NOTE | 2016-09-22 21:09 | CPS MD/APRN INITIAL ASSE PSYCH ---
Psychiatric Admission Paint Prep Technician's Note Reviewed: Yes Patient Seen and Examined: Yes Identifying Information: 65 yo retired, male, domiciled, living alone in his own home. Chief Complaint: "I did a terrible thing" Reaction to Hospitalization: passive History of Present Illness Onset of Illness: After the Holidays the patient became behaving in a bizarre way, sayng that he did a terrible thing, that something bad is going to happen to a lot of people because of it, staring into space, isolating, with limited amount of speech. Circumstances Leading to Admission: the patient spent the Holidays withhis family and appeared well to them . He came on his own to the ED with the complaint noted. We discontinued Zyprexa, which he had been taking for years ,in Jun.(gradual decrease w/o any difficulty starting March.)because he had been doing very well for more than 1 year. Per band tier's note he has not been taking the Effexor regularly-has been stable on it for a long time Problem(s) Justifying Need for Admission: -thought blocking -feelings of guilt and shame -intense fear -isolation,suicidal ideation Other HPI: as noted Past Psychiatric History Past Diagnosis(es)- if any: MDD,Recurrent,with psychotic features Alcohol use disorder in complete, stable remission Past Precipitating Factors- if any: work related stressors, usp causing increased worry and depression - Include inpatient and outpatient treatment Treatment History: inpatient at in 2007, attnded IOP and OPS thereafter History of Suicide Attempts or Gestures denies Substance Abuse History: alcohol use disordr in complete,stable remission Allergies: Coded Allergies: No Known Allergies (11/12/15) Home Med List: as noted in the medication reconciliation/crisis assesment - Include any medical condition(s) that may - impact the patient's recovery/remission Past Medical History: hypercholesterolemia Past History Medical History Any Pertinent Medical History? unobtainable Blood Transfusion Hx: No Type of Reaction: none Neurological: NONE EENT: NONE Cardiovascular: NONE Respiratory: NONE Gastrointestinal: constipation Hepatic: NONE Renal: NONE Musculoskeletal: NONE Psychiatric: depression Endocrine: NONE Blood Disorders: NONE Cancer(s): NONE PUBLIC HOUSING MANAGER/Reproductive: NONE Other Medical Hx: none History of MRSA: No Active MRSA Infection: No History of VRE: No Active VRE Infection: No History of CDIFF: No Active CDIFF Infection: No Isolation History: Standard Pneumonia Vaccine Status: Unknown if ever received Influenza Vaccine: 07/18/16 Influenza Vaccine Status Given in past- Date Above Surgical History Surgical History: none Psychiatric Family/Social Hx Family History Psychiatric Illness: MDD,recurrent,with psychotic features Substance Use: alcohol-30 years sober Suicides: denies Other Family History: denies Social History Living Situation: lives alone Significant Relationships (family/friends): family,very few friends Education: completed HS Vocation/Occupation: retired Legal: denies Other Social History: Healthly Behaviors Screening Tobacco Screening Tobacco Use from ED Docu: Quit >30 days ago - If tobacco counseling indicated - the following topics are required. - #1 Recognizing dangerous situations. - #2 Coping Skills. - #3 Basic information about quitting. Status of Tobacco Cessation Counseling: N/A B/C NO TOB USE Cessation Med Status: No Tobacco Use last 30d Alcohol Screening - ETOH screen POS if BAL >=80 or Audit-C>= M4/F3 Audit-C Score from Diag Assess: 0 Blood Alcohol Level: Lab Laboratory Tests 09/21 1102 Toxicology Serum Alcohol (<10 MG/DL) < 10.0 Alcohol Use Screening Results: Neg per Audit C &/or BAL - If ETOH counseling indicated - the following topics are required. - #1 Express concern about the patient's - drinking at unhealthy levels, include informing - of national norms for moderate drinking: - men <= 14 drinks/week, max 4 drinks/occasion - women <= 7 drinks/week, max 3 drinks/occasion - #2 Providing feedback, including linking alcohol to - negative physical effects (liver injury, hypertension) - negative emotional effects (relationship problems and - depression) - negative occupational consequences (reduced work - performance) - #3 Advising the patient to abstain from alcohol or - to drink below national norms for moderate drinking - (as listed above). Status of ETOH Use Counseling: N/A B/C NO ETOH Use Metabolic Screening - Screen if on a Neuroleptic Medication - Metabolic screening should include: - Blood Pressure, BMI, Glucose or Hgb A1c, & a - Lipid profile from within the past 365 days. Metabolic Screening () Not Applicable, patient not on a neuroleptic. OR ([x]) Patient on a neuroleptic(s) . Enter below results for Glucose or Hemoglobin A1C, and lipid panel if obtained during the last 365 days. BMI: 25.000 Blood Pressure: 157/83 Laboratory Results (If applicable): Lab Cholesterol 187 MG/DL 08/01/16 1010 Cholesterol/HDL Ratio 4 % 08/01/16 1010 HDL Cholesterol 45 mg/dL 08/01/16 1010 LDL Cholesterol, Calc 99 mg/dL 08/01/16 1010 Triglycerides 217 mg/dL H 08/01/16 1010 Hgb A1c and glucose ordered Exam and Plan Mental Status Examination Ambulation Status: ambulates w/o assistance Appearance: 65 yo CM looking stated age, with white, dirty hair, white stuble, wearing glasses, sitting very upright in thr chair, rigidly imobile, fixed stare, red, tired eyes, rarely blinking. Wears white T-shirt, training pants appearing too large, both items clean Attitude towards examiner: initially frightened, less so in time Psychomotor activity: very slow, appears catatonic almost Behavior: scared, paranoid, guarded Quality of speech: delayed, very simple sentences,mostly non-verbal Affect: constricted,flat Mood: anxious and depressed Suicidal Ideation: passive-at the question "are you thinking of killing yourself" answers :"I wish I had"States and also believes that he will not hurt himself in the hospital. 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" Hallucinations: denies Paranoid/Delusional Material: -the patient believes that everybody hates him and want him because he did somathing terrible, very wrong -moves his stare rapidly at noises/background movement -says that every body and everything is scaring him Difficulties with thought organization: thought blocking, povery of thought Insight: poor Judgment: poor Orientation: to time,place,person Cognition: unable to asses, refuses/not able to answer specific questions Memory Function: unable to asses Estimate of intellectual functioning: average by history Assets/Strengths Patient Identified Assets/Strengths: unable to respond Impression/Plan - Include all active medical diagnosis that require tx DSM 5 Diagnosis(es): MDD,Recurrent, Severe, with psychotic features Schizoid PD FLEX Stressors include social isolation, medication changes/not taking the medication as prescribed(omitting doses). has increased colesterol -stable with medication mangement GAF23% - Initial Tx Plan for Active Psych & Medical Conditions Treatment Plan: The patient will be monitored on the unit for safety, psychosis, mood disorder. Symptom management with medication. He will participate in groupand individual therapy, behavioral and social interventions. Will participate in developing appropriate discharge planning. - Factors that would help patient function - in a less restrictive setting. Factors: The patient will be psychosis free, without SI/HI and reduced anxirty and depression in order to be transferred to a lower level of care.
--- NOTE | 2016-09-22 21:25 | NUR ---
PT HAS BEEN QUIET FOR THE MAJORITY OF SHIFT, ACTING VERY ISOLATIVE, THOUGH IN [place] BUT STAYING BY SELF, WITHDRAWN AND NOT INTERACTING WITH PEERS. PT WILL RESPOND IF DIRECTLY ENGAGED BUT COMMUNICATES IN SHORT PHRASES AND VERY QUIETLY. PT MOOD IS STABLE, AFFECT IS FLAT/CONSTRICTED, NUTRITION IS NORMAL. PT DENIES SI AT THIS TIME.
[2016-09-23 08:09] VITALS: BP 151/65
--- NOTE | 2016-09-23 10:12 | NUR ---
DR. GUERRIER OFFICE RENOTIFIED FOR H&P.
--- NOTE | 2016-09-23 10:16 | NUR ---
THIS RN SPOKE WITH DR. GUERRIER AT THIS TIME AND REMINDED OF THE H&P, NO FURTHER ORDERS AT THIS TIME.
[2016-09-23 12:21] VITALS: BP 151/88
--- NOTE | 2016-09-23 12:56 | CP SOUTH PROGRESS NOTE PSYCH ---
Psych (Inpt) Progress Note Progress Note Include the following elements, when applicable: Involvement in the active treatment of the patient with behavioral observations of the patient and the patient's response to the treatment. Review of the ongoing treatment process in the context of the treatment plan. Indication of how multi-disciplinary staff members are carrying out the treatment plan. Plans for future interventions and recommendations for revision of the treatment plan. Liaison with other physicians/providers. Progress Note: Pt reports that he is "not well" today. He notes increasing depression but would not elaborate. He denies SI or HI. Denies AVH or paranoia. He has decided to "keep to himself" while here. He feels that he "made a bad desicion to come here and should have stayed at home. ++thought blocking. Current Medications Sig/Dyllan Start time Last Medication Dose Route Stop Time Status Admin Atorvastatin Calcium 40 MG 1700 09/23 1700 AC PO Ezetimibe 10 MG DAILY 09/23 1000 AC 09/23 PO 0825 Lorazepam 0.5 MG TID 09/22 2200 AC 09/23 PO 09/29 2158 0825 Olanzapine 10 MG AT BEDTIME 09/22 2200 AC 09/22 PO 2141 Patient Medication 1 UNIT ONE NR 09/22 2100 RI Teaching ED 09/22 2130 Venlafaxine HCl 225 MG DAILY 09/23 1000 AC 09/23 PO 0825 Laboratory Tests 09/21/16 1102: Anion Gap 16, Estimated GFR > 60, BUN/Creatinine Ratio 12.9, Glucose 126 H, Calcium 9.7, TSH &T3 &Free T4 Intrp 0.586, CBC w Diff NO MAN DIFF REQ, RBC 4.71, MCV 90.6, MCH 31.3 H, RDW 13.3, MPV 8.2, Gran % 64.5, Lymphocytes % 27.7, Monocytes % 7.1, Eosinophils % 0.2, Basophils % 0.5, Absolute Granulocytes 4.4, Absolute Lymphocytes 1.9, Absolute Monocytes 0.5, Absolute Eosinophils 0, Absolute Basophils 0, PUBS MCHC 34.5, Serum Alcohol < 10.0 09/21/16 0917: Urine Opiates Screen < 100.00, Methadone Screen < 40, Barbiturate Screen < 60, Ur Phencyclidine Scrn < 6.00, Amphetamines Screen < 100, U Benzodiazepines Scrn < 85, Urine Cocaine Screen < 50, Urine Cannabis Screen < 5.00 Vital Signs Result Date Time B/P 151/88 09/23 1221 Pulse 90 09/23 1221 Temp 97.3 09/23 0809 Pulse Ox 98 09/22 1107 O2 Delivery Room Air 09/22 1107 Resp 18 09/22 1107 Intake & Output 09/23 0000 09/22 1600 09/22 0800 Intake Total Output Total Balance Patient 154 lb Weight MSE Appears as stated age. Cooperative behavior, good, no eye contact. Nl speech rate and prosody. No psychomotor retardation or agitation. Mood fine Affect flat, constricted, appropriate, non-liable. Linear and goal directed thought process. Denies SI or HI. Does not appear to be responding to internal stimuli however + TB. Denies AVHs, paranoia, though noted to be paranoid by staff, or delusions. I/J: limited A/P: Pt with hx of schizophrenia now with worsening psychosis in the setting of changes to meds when more stable. Pt has decompensated with paranoia, thought blocking, and bizzare behaviors. Restarted on zyprexa dagoberto 10mg nightly Cont home meds
--- NOTE | 2016-09-23 13:40 | NUR ---
PT IS OUT IN COMMUNITY. PT DOES NOT INTERACT MUCH WITH STAFF AND PEERS. PT IS ISOALTIVE TO SELF ON UNIT. PT MOOD IS STABLE WITH A CONSTRICTED AFFECT. PT IS SEEN IN THE LOUNGE STANDING AROUND LOOKING AT THE NURSES STATION. PT IS ATTENDING GROUPS. PT DENIES SI
[2016-09-23 15:41] VITALS: BP 129/82
[2016-09-23 19:47] VITALS: BP 144/81
--- NOTE | 2016-09-23 21:52 | NUR ---
PATIENT IS ALERT AND ORIENTED X3, PLEASANT AND COOPERATIVE WITH TREATMENT PLAN; HE IS QUIET, BUT PRESENT IN [place], WATCHING TV WITH PEERS, CONVERSES WELL; ATTENDED WRAP UP AND TALKED ABOUT VISITING WITH HIS FAMILY; AFFECT SOMEWHAT BLUNTED; HE DENIES S/I AT THIS TIME.
[2016-09-24 07:57] VITALS: BP 140/93
--- NOTE | 2016-09-24 09:03 | PN- Att Addend ---
Attending Addendum Attending Brief Note Medical Atn note Admitted to [facility] for feelinf upset about finances. Current Medications Sig/Dyllan Start time Last Medication Dose Route Stop Time Status Admin Atorvastatin Calcium 40 MG 1700 09/23 1700 AC 09/23 PO 1623 Chlorpromazine 25 MG Q6P PRN 09/23 1400 AC PO Ezetimibe 10 MG DAILY 09/23 1000 AC 09/24 PO 0801 Lorazepam 0.5 MG Q6P PRN 09/23 1400 AC PO 09/30 1359 Lorazepam 1 MG ONCE ONE 09/23 1345 DC 09/23 PO 09/23 1346 1335 Lorazepam 0.5 MG TID 09/22 2200 AC 09/24 PO 09/29 2159 0802 Olanzapine 5 MG ONCE ONE 09/23 1345 DC 09/23 PO 09/23 1346 1337 Olanzapine 5 MG .STK-MED ONE 09/23 1330 DC PO 09/23 1331 Olanzapine 10 MG AT BEDTIME 09/22 2200 AC 09/23 PO 2143 Venlafaxine HCl 225 MG DAILY 09/23 1000 AC 09/24 PO 0801 Vital Signs Date Time Temp Pulse Resp B/P Pulse O2 O2 Flow FiO2 Ox Delivery Rate 09/24 075 96.9 64 140/93 09/23 1947 97.6 95 20 144/81 09/23 1541 92 129/82 09/23 1221 90 151/[address] with current mgt. Assessment/Plan Assessment/Plan Bipolar disorder Consult Acknowledgment - Thank you for your consult request.
[2016-09-24 11:58] VITALS: BP 125/73
--- NOTE | 2016-09-24 13:14 | CP SOUTH PROGRESS NOTE PSYCH ---
Psych (Inpt) Progress Note Progress Note Include the following elements, when applicable: Involvement in the active treatment of the patient with behavioral observations of the patient and the patient's response to the treatment. Review of the ongoing treatment process in the context of the treatment plan. Indication of how multi-disciplinary staff members are carrying out the treatment plan. Plans for future interventions and recommendations for revision of the treatment plan. Liaison with other physicians/providers. Progress Note: Pt eager to speak with provider. He wanted to talk about feeling as though he "comitted a heinous crime" and was going to get in trouble. He was not redirectable around this. He also noted that he did not "feel safe" here and began to look around the office. He would not expand on this but denies SI or HI. He is willing to notify the staff if worried about something and feels that he can trust the staff. He denied having visitors yesterday even though, per RN report, visited by family and was interactive at that time. Pt continues to deny psychotic sx as well as SI or HI. Current Medications Sig/Dyllan Start time Last Medication Dose Route Stop Time Status Admin Atorvastatin Calcium 40 MG 1700 09/23 1700 AC 09/23 PO 1623 Chlorpromazine 25 MG Q6P PRN 09/23 1400 AC PO Ezetimibe 10 MG DAILY 09/23 1000 AC 09/24 PO 0801 Lorazepam 0.5 MG Q6P PRN 09/23 1400 AC 09/24 PO 09/30 1359 1055 Lorazepam 1 MG ONCE ONE 09/23 1345 DC 09/23 PO 09/23 1346 1335 Lorazepam 0.5 MG TID 09/22 2200 AC 09/24 PO 09/29 2159 0802 Olanzapine 15 MG AT BEDTIME 09/24 2200 AC PO Olanzapine 5 MG ONCE ONE 09/23 1345 DC 09/23 PO 09/23 1346 1337 Olanzapine 5 MG .STK-MED ONE 09/23 1330 DC PO 09/23 1331 Olanzapine 10 MG AT BEDTIME 09/22 2200 DC 09/23 PO 2143 Venlafaxine HCl 225 MG DAILY 09/23 1000 AC 09/24 PO 0801 Vital Signs Result Date Time B/P 125/73 09/24 1158 Pulse 88 09/24 1158 Temp 96.9 09/24 0757 Resp 20 09/23 1947 Pulse Ox 98 09/22 110 O2 Delivery Room Air 09/22 1107 MSE Appears as stated age. Cooperative behavior, good, staring eye contact. Nl speech rate and prosody though slow and whispered today more than one day ago. + psychomotor retardation. Mood OK...but... Affect flat, fearful, constricted, inappropriate, non-liable. Linear and goal directed thought process though fixated on this crime that he was commited; ++though blocking. Denies SI or HI. Does not appear to be responding to internal stimuli. Denies AVHs, paranoia, or delusions. I/J: limited A/P: Pt with schizophrenia with worsening psychotic sx leading the admission. He has been reinstated on zyprexa, which was previously helpful for psychosis. - Increase zyprexa from 10mg to 15mg qhs - PRN ativan and thorazine for agitated/extreme paranoia - Cont other med regimen - Pt may benefit from ECT for significant psychosis and depression if does not respond to AP meds - Dispo per primary team
--- NOTE | 2016-09-24 14:28 | NUR ---
PT IS OUT IN COMMUNITY INTERACTING AT TIMES WITH STAFF AND PEERS. PT MOSTLY SITS IN LOUNGE WATCHING THE FISH AND NURSES STATION. PT DID ATTEND PLANNING BUT DID NOT GO TO FOCUS GROUP. PT MOOD IS STABLE WTIH A FLAT AFFECT. PT DENIES SI.
[2016-09-24 16:03] VITALS: BP 147/86
[2016-09-24 19:38] VITALS: BP 140/79
[2016-09-25 08:15] VITALS: BP 145/84
[2016-09-25 12:01] VITALS: BP 131/75
--- NOTE | 2016-09-25 13:12 | NUR ---
PT IS COMPLIANT AND COOPERATIVE. MOOD IS STABLE WITH A FLAT AFFECT. PT DENIES SI AT THIS TIME, NO COMPLAINTS OFFERED. PT NOTED TO BE STARING BLANKLY OFTEN, CAN BE SLOW TO RESPOND AT TIMES. PT IS PRESENT IN THE COMMUNITY, HAS MINIMAL INTERACTION WITH PEERS AND STAFF. PT IS ATTENDING GROUPS. VITALS ARE STABLE, APPETITE IS GOOD. NO SIGNS OF ACTIVE PSYCHOSIS NOTED.
--- NOTE | 2016-09-25 14:38 | SOCIAL WORKER PROG NOTE PSYCH ---
Social Work Progress Note Progress Note SW met with patient for the first time today. Patient presented with very slow and soft speech, poor eye contact and appeared very nervous. He reported feeling "awful" today and stated "I'm not suppose to be here." When asked why he is not suppose to be here he responded stating he "should be locked up." He had a difficult time explaining why but perseverated about fraud relating to social security. Patients sister, Mitzi Pryor, called this manual writer and confirmed that he was stating similar remarks to her and her brother yesterday. She reported that she does not believe he has done anything illegal and is making this story up. She did talk about social security and the last time he worked was in July 2015. She reported that he lives alone and does appear lonely. She believes he ruminates at home and has made this story up for an unknown reason. She would like to come in for a family meeting this week and plans to talk with her brother to confirm day/time they are both available.
--- NOTE | 2016-09-25 14:39 | SOCIAL WORKER TX PLAN PSYCH ---
Treatment Plan - Please Document: - Evidence that there is ongoing collaboration between - the patient and the interdisciplinary team, - including the patient's active participation and - responsibility for engaging in the treatment regimen, - and that the treatment plan is individualized and - relevant to the patient's conditions. - Treatment plan should reflect documentation indicating - that all active therapeutic efforts are included. Strengths/Capabilities: retired/worked 40+ yrs at [employer]. Owns home. Engaged with [employer] for several yrs. Physical Limitations (Interventions): none reported Patient Identified Trmt Goals: "I don't want to be guilty" Discharge Plan: [facility] Problem/Goals #1 Problem #1: suicidal ideation Goal (Short Term): Today I will attend 2 groups Today I will identify 2 stressors Today I will identify 2 positive supports Today I will work on recognizing 3 emotions I am feeling Goal (Order To Delivery Supervisor): Be free of suicidal thoughts/attempts Develop 3 coping skills to deal with depression Identify 3 positive support systems to call in crisis Develop a crisis plan with 3 lennon people Identify 2 positive traits per week about myself Identify 2 things I have to look forward to Identify 2 positive people in my life and 1 thing I appreciate about them Interventions: Learn ways to manage depressive symptoms accordingly and identify positive supports to manage life stressors and mood fluctuations. Modalities: Encourage groups, education on depression, provide CBT treatment, family meeting. DSM5/PS Stressors/Medical Prob Diagnosis' (DSM 5, Stressors, Medical): Unspecified Schizophrenia Spectrum and other Psychotic Disorders F29, Major Depressive Disorder 296.2/f32.3 financial Current GAF: 30 Treatment Team - Responsibilities of members of the treatment team include: - Medication Management- MD or SHOP COOPER - Medication Administration and Monitoring- Nurse - Group Therapy- Occupational Therapist - 1:1 Therapy,Disch Planning,family involvement-[employer]cell Connector Placer
[2016-09-25 15:57] VITALS: BP 141/82
--- NOTE | 2016-09-25 16:02 | CP SOUTH PROGRESS NOTE PSYCH ---
See Addendum Psych (Inpt) Progress Note Progress Note Include the following elements, when applicable: Involvement in the active treatment of the patient with behavioral observations of the patient and the patient's response to the treatment. Review of the ongoing treatment process in the context of the treatment plan. Indication of how multi-disciplinary staff members are carrying out the treatment plan. Plans for future interventions and recommendations for revision of the treatment plan. Liaison with other physicians/providers. Progress Note: [I discussed this patient's progress to date, current mental status, treatment process in the context of the treatment plan, and discharge planning with staff/ team in the daily morning inpatient team meeting. I also met with the patient myself in individual session.] Current Medications Sig/Dyllan Start time Last Medication Dose Route Stop Time Status Admin Atorvastatin Calcium 40 MG 1700 09/23 1700 AC 09/24 PO 1625 Chlorpromazine 25 MG Q6P PRN 09/23 1400 DC PO Ezetimibe 10 MG DAILY 09/23 1000 AC 09/25 PO 0848 Lorazepam 0.5 MG Q6P PRN 09/23 1400 AC 09/24 PO 09/30 1359 1055 Lorazepam 0.5 MG TID 09/22 2200 AC 09/25 PO 09/29 2159 0848 Olanzapine 2.5 MG Q6-PRN PRN 09/25 1030 AC PO Olanzapine 15 MG AT BEDTIME 09/24 2200 AC 09/24 PO 2125 Venlafaxine HCl 225 MG DAILY 09/23 1000 AC 09/25 PO 0848 Vital Signs Date Time Temp Pulse Resp B/P Pulse O2 O2 Flow FiO2 Ox Delivery Rate 09/25 1557 108 141/82 09/25 1201 92 131/75 09/25 0815 96.1 96 145/84 09/24 1938 96.8 98 140/79 09/24 1603 84 147/86 SUBJECTIVE: "I fear being caught." OBJECTIVE: Current Medications Sig/Dyllan Start time Last Medication Dose Route Stop Time Status Admin Atorvastatin Calcium 40 MG 1700 09/23 1700 AC 09/24 PO 1625 Chlorpromazine 25 MG Q6P PRN 09/23 1400 DC PO Ezetimibe 10 MG DAILY 09/23 1000 AC 09/25 PO 0848 Lorazepam 0.5 MG Q6P PRN 09/23 1400 AC 09/24 PO 09/30 1359 1055 Lorazepam 0.5 MG TID 09/22 220 AC 09/25 PO 09/29 2159 0848 Olanzapine 2.5 MG Q6-PRN PRN 09/25 1030 AC PO Olanzapine 15 MG AT BEDTIME 09/24 2200 AC 09/24 PO 2125 Venlafaxine HCl 225 MG DAILY 09/23 1000 AC 09/25 PO 0848 Vital Signs Date Time Temp Pulse Resp B/P Pulse O2 O2 Flow FiO2 Ox Delivery Rate 09/25 1557 108 141/82 09/25 1201 92 131/75 09/25 0715 96.1 96 145/84 09/24 1938 96.8 98 140/79 ASSESSMENT: This was this lead technical writer's first encounter with the patient on [facility]. He presented A& Ox4, depressed, with flat affect. Noted with a vacant stare t/o course of interview. Speech slow and soft. + psychomotor retardation. Thought process and speech were delayed, and his responses to questions were vague and disconnected. He first reported feeling "fearful of being caught." When asked what he would be caught for, he replied "for covering things up." When asked about what he was covering up, the patient replied "is that a legal issue?" Patient would not elaborate beyond these statements. He appeared thought blocking. Denied AVH. At times, appeared responding to internal stimuli. Reported mood as "depressed, anxious, guilty" secondary to his "fear of being caught." ? PI. Denied feeling hopeless, helpless, worthless. Reported + guilt. Patient reported intermittent passive SI, denied plan and intent while in hospital. Patient contracted for safety on unit, trusts staff and is willing to go to staff if feeling unsafe. He reported a prior suicide attempt in 2007 by carbon monoxide poisoning, and reported that if he were not hospitalized at present he might try this again. Patient was unable to report when, why, or how he would act on this. He denied homicidal ideation. Reported sleep and appetite were good. Reported tolerating increase in Zyprexa from 10mg to 15mg at HS. Discussed with patient option of adjuncting Zyprexa with [place] for depression and intermittent passive SI. Reviewed [place] education with the patient, the risks/ benefit/SE profiles. Patient refused trial at present, but elected to consider this. PLAN: 1. Continue monitoring the patient on unit for safety, mood, psychosis, suicidal ideation. 2. Continue current Zyprexa dose at 15mg at HS, as he received first dose last night. Will assess if patient's psychosis improves on current dose, prior to increasing further. 3. Consider adding [place] as adjuct to further target depressed mood and SI. 4. Obtain collateral from outpatient psychiatrist Dr. Donavan Samano. 5. Dispo planning per primary team.
[2016-09-25 20:07] VITALS: BP 141/86
--- NOTE | 2016-09-25 22:43 | NUR ---
Patient is clearing well. Clam and coopertaive. Able to verbalize need. Napped well during shift and up for medication. Speech clear, however is repeating some terms. No issue or complaints to report
[2016-09-26 08:26] VITALS: BP 140/87
--- NOTE | 2016-09-26 10:36 | SOCIAL WORKER PROG NOTE PSYCH ---
Social Work Progress Note Progress Note Met with pt, he was slow to respond, had little eye contact and reports he was "not doing good", he reports he put others at risk for his own benefit, he would not ellaborate beyond that. I encouraged him to attend and utilize group support. Pt states "I have no emotion" Pt denies si/hi/ when asked about hallucinations and trails off and states there are these people and I wonder if they are keeping it together. Otherwise pt offered no complaints.
--- NOTE | 2016-09-26 11:05 | CP SOUTH PROGRESS NOTE PSYCH ---
Psych (Inpt) Progress Note Progress Note Include the following elements, when applicable: Involvement in the active treatment of the patient with behavioral observations of the patient and the patient's response to the treatment. Review of the ongoing treatment process in the context of the treatment plan. Indication of how multi-disciplinary staff members are carrying out the treatment plan. Plans for future interventions and recommendations for revision of the treatment plan. Liaison with other physicians/providers. Progress Note: [I discussed this patient's progress to date, current mental status, treatment process in the context of the treatment plan, and discharge planning with staff/ team in the daily morning inpatient team meeting. I also met with the patient myself in individual session.] SUBJECTIVE: "I feel overwhelmed." OBJECTIVE: Current Medications Sig/Dyllan Start time Last Medication Dose Route Stop Time Status Admin Atorvastatin Calcium 40 MG 1700 09/23 1700 AC 09/25 PO 1713 Ezetimibe 10 MG DAILY 09/23 1000 AC 09/26 PO 0932 Lorazepam 0.25 MG 0800 09/28 08 AC PO 09/28 08 Lorazepam 0.25 MG 08,09/27 0800 AC PO 09/27 2000 Lorazepam 0.25 MG 09/26 AC PO 09/26 2000 Lorazepam 0.5 MG 0800,09/25 DC 09/26 PO 10/02 1959 0932 Lorazepam 0.5 MG Q6P PRN 09/23 1400 AC 09/24 PO 09/30 1359 1055 Lorazepam 0.5 MG TID 09/22 2200 DC 09/25 PO 09/29 2159 1713 Olanzapine 2.5 MG Q6-PRN PRN 09/25 1030 AC 09/25 PO 1712 Olanzapine 15 MG AT BEDTIME 09/24 2200 AC 09/25 PO 2145 Venlafaxine HCl 225 MG DAILY 09/23 1000 AC 09/26 PO 0932 ASSESSMENT: Met with the patient following his visit with his koerht-ib-ner. He presented A& Ox4. Appeared depressed, affect remained flat. Patient had minimal eye contact, but was not noted to be staring blankly throughout interview as noted yesterday. Speech was intermittently fluid, with moments of silence. Continues to thought block, but less than yesterday. Thought process remained somewhat delayed. Continued psychomotor retardation. When asked what made him feel overwhelmed, he reported "Clinton's box has been opened...all of the wrong things I've done have come out." When asked to specify what he meant by this, he reported "I lied to my family that I was able to retire." Patient then reported "financial issues." He would not elaborate beyond that. On encounter, patient reported feeling hopeless and helpless, he denied feeling worthless. He reported depression of 10/10 (10 being the worst), and anxiety of 10/10 (10 being the worst). He reported passive SI, denied plans or intent. He denied homicidal ideation. He denied auditory and visual hallucinations. He did not appear responding to internal stimuli. + PI. ? delusions. Reviewed trial of [place] to target depression and passive SI. Reviewed the risk /benefit/SE profiles of medication with patient who verbalized understanding of education, but was reluctant to trial. Patient reported feeling hopeless that nothing will help him. Patient however was agreeable to considering trial. Will revisit Bussey trial tomorrow morning with patient. PLAN: 1. Start ativan taper to decrease psychomotor retardation -0.5mg QAM/0.25mg QPM (09/26/16), 0.25mg BID (09/27/16), then 0.25mg QAM (), then stop. 2. Continue Zyprexa 15mg at HS for psychosis. Psychosis slowly improving as evidenced by less frequent thought blocking. Utilize prn Zyprexa 2.5mg for psychosis (do not exceed 2 doses in 24 hours). 3. EKG ordered. 4. Revisit trial of [place] tomorrow morning and start if EKG wnl and patient agreeable. 5. Dispo planning per primary team.
[2016-09-26 12:37] VITALS: BP 137/77
--- NOTE | 2016-09-26 14:03 | NUR ---
PT HAS BEEN COMPLIANT WITH HIS MED REGIME AND IS ENCOURAGED TO ATTEND GROUPS. HE IS OBSERVED SITTING BY THE [employer] STARING.HE DENIED SUICIDAL THOUGHTS WHEN ASKED. HE IS CALM AND COOPERATIVE
[2016-09-26 16:03] VITALS: BP 139/79
[2016-09-26 20:01] VITALS: BP 145/84
--- NOTE | 2016-09-26 21:53 | NUR ---
Pt is out in the community mood flat little interaction was observed during the shift. Pt is compliant and cooperative. Vital signs are stable appetite is good. No issues noted during the day. Will continue to monitor the pt overnight.
--- NOTE | 2016-09-26 23:01 | NUR ---
PT ADMITTED TO SI THIS PM. DENIED PLAN. FEELS SAFE. "I WON'T DO ANYTHING TO HARM MYSELF." SAID DEPRESSION WAS " LOW YOU CAN GO." BUT THEN ON SCALE OF 1-10 DEPRESSION "5" AND ANXIETY "10" AND "I'M SAD BUT I DON'T THINK I'M DEPRESSED." SOME THOUGHT BLOCKING NOTED. HESITATED WHEN ASKED IF HE WAS EXPERIENCING AH. DENIED AH. MORE QUICKLY RESPONDED WITH "NO" WHEN ASKED ABOUT VH. AFFECT FLAT. RUMINATING ON DISAPPOINTING FAMILY R/T HIS FINANCES. "THEY WILL NEVER FORGIVE ME." YET, IT IS UNCLEAR WHY FAMILY WOULD BE ANGRY WITH HIM FOR RETIRING EARLY. PT. WITH NO CHILDREN. SAID HE RECEIVES SOCIAL SECURITY CHECK. PT UNABLE TO EXPLAIN EXACTLY WHAT HIS FINANCIAL CONCERNS ARE OR WHY THEY WOULD AFFECT OTHER FAMILY MEMBERS IE SIBLINGS. BEHAVIOR PARANOID, WITHDRAWN, GUURDED, AND SUSPICIOUS. PT ENCOURAGED TO VERBALIZE THOUGHTS AND FEELINGS TO STAFF INCLUDING THANH KHALIL HE ADMITTED THAT EARLIER IN DAY HE WAS EXPERIENCING SI BUT DID NOT DISCLOSE TO THANH. PT MED COMPLIANT WITHOUT RESISTANCE. MOUTH CHECKS BEING DONE WITH MED ADMINISTRATION.
--- NOTE | 2016-09-26 23:27 | NUR ---
PT MOVED FROM END OF LEAL B8 TO B3 WHICH IS CLOSER TO NURSES' STATION.
--- NOTE | 2016-09-27 04:46 | NUR ---
SLEPT WELL NO S/S OF SUICIDAL IDEATION Q 15MIN. CHECKS IN PROGRESS THROUGH OUT SHIFT.
[2016-09-27 07:58] VITALS: BP 150/93
--- NOTE | 2016-09-27 10:58 | CP SOUTH PROGRESS NOTE PSYCH ---
Psych (Inpt) Progress Note Progress Note Include the following elements, when applicable: Involvement in the active treatment of the patient with behavioral observations of the patient and the patient's response to the treatment. Review of the ongoing treatment process in the context of the treatment plan. Indication of how multi-disciplinary staff members are carrying out the treatment plan. Plans for future interventions and recommendations for revision of the treatment plan. Liaison with other physicians/providers. Progress Note: [I discussed this patient's progress to date, current mental status, treatment process in the context of the treatment plan, and discharge planning with staff/ team in the daily morning inpatient team meeting. I also met with the patient myself in individual session.] SUBJECTIVE: "I'm not well." OBJECTIVE: Current Medications Sig/Dyllan Start time Last Medication Dose Route Stop Time Status Admin Atorvastatin Calcium 40 MG 1700 09/23 1700 AC 09/26 PO 1701 Ezetimibe 10 MG DAILY 09/23 1000 AC 09/27 PO 0801 Keo Carbonate 300 MG 0809/28 0800 AC PO Keo Carbonate 300 MG 09/27 2200 AC PO Lorazepam 0.25 MG 09/28 0800 AC PO 09/28 0801 Lorazepam 0.25 MG 0800,09/27 0800 AC 09/27 PO 09/27 2000 08 Lorazepam 0.25 MG 09/26 2000 DC 09/26 PO 09/26 Lorazepam 0.5 MG Q6P PRN 09/23 1400 AC 09/27 PO 09/30 1359 1435 Olanzapine 5 MG 0809/28 0800 AC PO Olanzapine 2.5 MG .STK-MED ONE 09/27 0809 DC PO 09/27 0810 Olanzapine 2.5 MG Q6-PRN PRN 09/25 1030 DC 09/27 PO 1434 Olanzapine 15 MG AT BEDTIME 09/24 2200 AC 09/26 PO 2210 Venlafaxine HCl 225 MG DAILY 09/23 1000 AC 09/27 PO 0801 Vital Signs Date Time Temp Pulse Resp B/P Pulse O2 O2 Flow FiO2 Ox Delivery Rate 09/278 97.2 98 150/93 09/26 2000 97.1 108 145/84 09/26 1603 94 139/79 09/26 1237 100 137/77 09/26/16 EKG: Sinus Rhythm, with rate of 94. Borderline left axis deviation. PR=836 GLe=760 ASSESSMENT: Met with the patient today, who was A&Ox4. Affect remained flat, and mood was "anxious, depressed." Patient continues to appear thought blocking to the same degree as yesterday. Patient was able to respond to direct questions asked, however answers appeared vague and disconnected. He reported "questions continue to trap me, anything that anyone asks me." He could not elaborate on this statement, and was observed sitting in chair for approx 1 minute staring blankly. Patient noted with mildly less psychomotor retardation, observed ambulating with more fluid gait, and less slow to sit and stand up. Speech remains delayed at times. Patient continues to show difficultly articulating his thoughts, but does not appear responding to internal stimuli. He denied AH and VH. + PI that "people are after my money and talking about me." Patient reported the reason for this to be "because I left myself wide open." Patient could not elaborate on this statement, or about who is after his money or talking about him. Patient reported sadness/depression of 10/10 (10 being the worst) and anxiety of 10/10 (10 being the worst). He reported feeling hopeless, helpless, and worthless. He reported "I'm never going to leave here, I'm never going to get better." He reported passive fleeting SI, denied plans or intent. He denied homicidal ideation. Reviewed with patient trial of Keo, the risk/benefit/SE profiles, to target depression/SI/mood stabilization. Patient initially declined trial and reported "it will not work." Keo trial was reviewed during family meeting with sister (Mitzi), and brother (Elfego) who was present via speaker phone. With encouragement from patient's brother and sister, the patient was agreeable to Keo trial. Reviewed with patient that combination of effexor, lithium and zyprexa may increase the risk of serotonin syndrome. Patient verbalized understanding was was agreeable to lithium trial. PLAN: 1. Add Zyprexa 5mg every morning for mood stabilization/psychosis. Continue Zyprexa 15mg at HS. 2. Continue Ativan taper to decrease psychomotor retardation. 3. Start Keo 300mg BID for depression/suicidal ideation. Keo level scheduled on 09/30/16 at 0600. 4. Continue monitoring the patient on unit for safety, suicidal ideation, psychosis, and mood. 5. Monitor for potential of serotonin syndrome. 6. Consider decrease in Effexor, as it may be contributing to delusions/paranoia and anxiety. 7. Dispo planning per primary team. 8. Will continue to monitor QTc, will repeat EKG on 10/02/16.
[2016-09-27 11:58] VITALS: BP 132/76
--- NOTE | 2016-09-27 12:29 | NUR ---
Pt present on the unit and sits by the nurses station/fish tank often and makes needs known to staff, sometimes it does take prompting and questioning, pt appears anxious and guarded yet communicates fairly well. Slept well, attended groups, vital signs stable. Pt did report to staff - thoughts that were bother some and given PRN Zyprexa and met with fair effect, Viri Willis APRN aware and will adjust schedule medication regiment.
[2016-09-27 16:17] VITALS: BP 149/87
--- NOTE | 2016-09-27 18:30 | SOCIAL WORKER PROG NOTE PSYCH ---
Social Work Progress Note Progress Note Patient had family meeting today with his sister Mitzi, phone conferenced in his brother Elfego, this development writer, and Viri Willis APRN. Patients family appear to be great supports for patient and are very concerned with his present state. They described patient as normally very friendly, outgoing, family oriented and adventurous. They reported that he he recently went on a family vacation with his brother and family in April and also recently drove to [place] by himself to visit a family member. They described patient to be highly functioning up until Kaylan with an optimistic and friendly outlook on life. During the meeting patient presented with very flat affect and depressed mood. He continued to express his concerns about committing fraud during his last hospitalization to [facility] in 2007. Patient seems to believe that his last admission was not legitimate and therefore he committed insurance fraud. Patient made comments about the IRS and Social Security coming from him. Patients family tried to reassure him that this was not accurate but patient did not understand. Patient was offerred to start [place] trial while in the hospital and patient agreed he will start. He will receive his first dose this evening. Patients family is aware that at this time we do not have a set discharge date or plan. We plan to regroup next week and discuss patients progress. Patient continues to endorse suicidal thoughts and is not able to contract for safety at this time.
--- NOTE | 2016-09-27 19:02 | SOCIAL WORKER PROG TO GOALS ---
Progress Toward Goals Strengths/Capabilities: retired/worked 40+ yrs at [employer] Owns home. Engaged with lawson [employer]OUR[employer] for several yrs. Physical Limitations (Interventions): none reported Patient Identified Trmt Goals: "I don't want to be guilty" Discharge Plan: IOP Problem/Goals #1 Problem #1: suicidal ideation Goal (Short Term): Today I will attend 2 groups Today I will identify 2 stressors Today I will identify 2 positive supports Today I will work on recognizing 3 emotions I am feeling Goal (Customer Service Officer): Be free of suicidal thoughts/attempts Develop 3 coping skills to deal with depression Identify 3 positive support systems to call in crisis Develop a crisis plan with 3 lennon people Identify 2 positive traits per week about myself Identify 2 things I have to look forward to Identify 2 positive people in my life and 1 thing I appreciate about them Interventions: Learn ways to manage depressive symptoms accordingly and identify positive supports to manage life stressors and mood fluctuations. Progress: Patient continues to endorse +SI and paranoid thinking. Patient is not attending groups on the unit and isolates. Patient did participate in family meeting today and has agreed to trial lithium.
[2016-09-27 19:26] VITALS: BP 147/89
--- NOTE | 2016-09-27 22:00 | NUR ---
PT IS VISIBLE ON UNIT, SITTING IN LOUNGE AND MOSTLY OBSERVING PEERS AND WATCHING TV. MINIMAL INTERACTION WITH PEERS AND STAFF. COOPERATIVE AND COMPLIANT WITH STAFF. ATTENDED WRAP UP MEETING BUT WAS VERY PASSIVE. HAD VISIT FROM FRIEND DURING EVENING. NO COMPLAINTS REPORTED. PT HAS STABLE MOOD AND VERY FLAT AFFECT.
[2016-09-28 07:57] VITALS: BP 136/86
--- NOTE | 2016-09-28 08:57 | CP SOUTH PROGRESS NOTE PSYCH ---
Psych (Inpt) Progress Note Progress Note Include the following elements, when applicable: Involvement in the active treatment of the patient with behavioral observations of the patient and the patient's response to the treatment. Review of the ongoing treatment process in the context of the treatment plan. Indication of how multi-disciplinary staff members are carrying out the treatment plan. Plans for future interventions and recommendations for revision of the treatment plan. Liaison with other physicians/providers. Progress Note: [I discussed this patient's progress to date, current mental status, treatment process in the context of the treatment plan, and discharge planning with staff/ team in the daily morning inpatient team meeting. I also met with the patient myself in individual session.] SUBJECTIVE: "I'm trapped." OBJECTIVE: Current Medications Sig/Dyllan Start time Last Medication Dose Route Stop Time Status Admin Atorvastatin Calcium 40 MG 1700 09/23 1700 AC 09/27 PO 1645 Ezetimibe 10 MG DAILY 09/23 1000 AC 09/28 PO 0802 [place] Carbonate 300 MG 0809/28 0800 AC 09/28 PO 0802 [place] Carbonate 300 MG 09/27 2200 AC 09/27 PO 2135 Lorazepam 0.25 MG 0809/28 0800 DC 09/28 PO 09/28 0801 0802 Lorazepam 0.25 MG 08,09/27 0800 DC 09/27 PO 09/27 2000 194 Lorazepam 0.5 MG Q6P PRN 09/23 1400 AC 09/27 PO 09/30 1359 1435 Olanzapine 5 MG 0800 09/28 0800 AC 09/28 PO 0802 Olanzapine 2.5 MG .STK-MED ONE 09/27 1428 DC PO 09/27 1429 Olanzapine 2.5 MG Q6-PRN PRN 09/25 1030 DC 09/27 PO 1434 Olanzapine 15 MG AT BEDTIME 09/24 2200 AC 09/27 PO 2135 Venlafaxine HCl 225 MG DAILY 09/23 1000 AC 09/28 PO 0802 Vital Signs Date Time Temp Pulse Resp B/P Pulse O2 O2 Flow FiO2 Ox Delivery Rate 09/28 0757 96.8 88 136/86 09/27 1926 96.6 104 147/89 09/27 1617 100 149/87 09/27 1158 92 132/76 ASSESSMENT: On encounter today, patient presented A&Ox4. Appeared somewhat disheveled. Spoke to nursing regarding ADL attendance. Per nursing patient requires ADL assistance. Eye contact was fixed, and appeared staring blankly toward promotion writer. Patient making slow progress. Less thought blocking noted today. Patient with occasional delayed responses to questions, but with prompting able to answer. Intermittent fluid speech, otherwise delayed. Appeared with continued delusion that insurance won't cover his hospital stay and that he has committed insurance fraud. Continued paranoia - "the new patient's know I'm a fraud." Patient unable to elaborate on response or identify rational factors contributing to this conclusion. Thought process remains poverished. Thought content odd. Insight and judgement limited. Patient reported depression of 4/10 (10 being the worst) and anxiety 10/10 (10 being the worst), today. Expressed feeling hopeless, helpless, and worthless. Initially he denied suicidal ideation, but when given more time to think about this he reported passive fleeting SI. He denied plan and intent. He contracted to safety while on unit. He denied HI. He denied AVH. He reported eating all scheduled meals. He reported sleep was good. Reported attending some groups and that he "trys to avoid participating...I don't want to disrupt the group purpose." Patient was encouraged to attend group and attempt participation for support. Patient agreeable. Patient reported tolerating increase in Zyprexa and trial of [place] well. He denied untoward medication effects. Patient agreeable to continue medications. PLAN: 1. Continue monitoring the patient on unit for safety, suicidal ideation, mood and psychosis. 2. Continue current medication regimen. 3. Li level scheduled on 10/01/16 at 0600. 4. Repeat EKG scheduled on 10/02/16 for QTc monitoring. 5. Conitnue mouth checks following each medication administration. 6. Dispo planning per primary team.
--- NOTE | 2016-09-28 12:21 | SOCIAL WORKER PROG NOTE PSYCH ---
Social Work Progress Note Progress Note Pt stated he thought he disappointed his family by lying them, although he thought they could feel the way they wanted to about him, he understood they were supportive. He states they said "we will see how it goes". I agreed, and states they just wants to see him get better. Pt was quiet, but states wants to get shampoo and soap. I asked pt if he had taken shower since admission, he said No. Upon the end of the conversation he decided to take a shower, that was a good decision. And will hopefully, make him feel refreshed. Pt continues with depressive symptoms.
--- NOTE | 2016-09-28 12:23 | NUR ---
PTS AFFECT IS CONSTRICTED AND MOOD IS DEPRESSED. WHEN ASKED HE REPORTED SOME SUICIDAL THOUGHTS. HE HAS NO PLAN AND FEELS SAFE IN THE HOSPITAL.HE NEEDED PROMPTING TO TEND TO HIS ADLS. HE IS ON MOUTH CHECKS TO ENSURE MED COMPLIANCE. MD NOTIFIED OF PTS MOOD AND BEHAVIOR. MONITORED Q15MIN
[2016-09-28 12:28] VITALS: BP 156/72
[2016-09-28 16:02] VITALS: BP 146/89
[2016-09-28 19:54] VITALS: BP 144/91
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
--- NOTE | 2016-09-28 22:06 | NUR ---
AMMEND FROM PREVIOUS NOTE, PT DID CLAIM SI, THOUGH WHEN INQUIRED DID NOT HAVE A PLAN AND WOULD NOT CARRY OUT ANY ATTEMPT ON THE UNIT. THE CHARGE NURSE WAS NOTIFIED.
--- NOTE | 2016-09-29 04:28 | NUR ---
PT SLEPT WELL, NO ISSUES.
[2016-09-29 07:31] VITALS: BP 149/89
--- NOTE | 2016-09-29 10:38 | SOCIAL WORKER PROG NOTE PSYCH ---
Social Work Progress Note Progress Note Met with Bean, he was sitting in a chair by the [employer] in the [facility]. Bean presents with a blank stare, and has poverty of speech. It appears that he is reponding to internal stimuli, guarded. I asked him how he slept he said 'Ok", and shook his head no to SI/HI. Bean is very withdrawn today, did note that he attended [employer] and blu a black hole and a square. He did disclose how he likes to walk and likes music, provides brief answers to questions. Bean requires continued stay, left clinical on voicemail Gavin/[employer] [facility]#[phone], [id number] requested review for / of next week. Waiting personnel recruiter back for AUTH. Spoke with Viri Willis APRN on this patient as well, whereas he was discussed in team meeting and needs continued stay.
[2016-09-29 11:57] VITALS: BP 132/80
--- NOTE | 2016-09-29 13:22 | NUR ---
PT IS COMPLIANT AND COOPERATIVE. PT IS OUT IN COMMUNITY SITTING BY THE [employer] WATCHING NURSES STATION. PT IS ATTENDING GROUPS BUT IS PASSIVE OR SILENT. PT MOOD IS STABLE WITH A FLAT AFFECT. PT DENIED SI THOUGHTS THIS MORNING.
--- NOTE | 2016-09-29 14:48 | CP SOUTH PROGRESS NOTE PSYCH ---
Psych (Inpt) Progress Note Progress Note Include the following elements, when applicable: Involvement in the active treatment of the patient with behavioral observations of the patient and the patient's response to the treatment. Review of the ongoing treatment process in the context of the treatment plan. Indication of how multi-disciplinary staff members are carrying out the treatment plan. Plans for future interventions and recommendations for revision of the treatment plan. Liaison with other physicians/providers. Progress Note: [I discussed this patient's progress to date, current mental status, treatment process in the context of the treatment plan, and discharge planning with staff/ team in the daily morning inpatient team meeting. I also met with the patient myself in individual session.] SUBJECTIVE: "You have all the medical papers on me?" OBJECTIVE: Current Medications Sig/Dyllan Start time Last Medication Dose Route Stop Time Status Admin Atorvastatin Calcium 40 MG 1700 09/23 1700 AC 09/28 PO 1606 Ezetimibe 10 MG DAILY 09/23 1000 AC 09/29 PO 0805 [place] Carbonate 300 MG 0800 09/28 0800 AC 09/29 PO 0805 [place] Carbonate 300 MG 2200 09/27 2200 AC 09/28 PO 2043 Lorazepam 0.5 MG Q6P PRN 09/23 1400 AC 09/28 PO 09/30 1359 2045 Olanzapine 5 MG 0800 09/28 0800 AC 09/29 PO 0805 Olanzapine 15 MG AT BEDTIME 09/24 2200 AC 09/28 PO 2043 Venlafaxine HCl 225 MG DAILY 09/23 1000 AC 09/29 PO 0805 Vital Signs Date Time Temp Pulse Resp B/P Pulse O2 O2 Flow FiO2 Ox Delivery Rate 09/29 1157 92 132/80 09/29 0731 96.9 100 149/89 09/28 1954 98.0 108 144/91 09/28 1602 104 146/89 ASSESSMENT: Met with patient today, who was A&Ox4. Eye contact was direct, observed staring blankly toward jingle writer. Affect flat, non-labile. Speech delayed. Behavior calm. Thought process remained delayed. Some thought blocking remained present. Patient appeared guarded and hesitant to engage in conversation. Appeared responding to some internal stimuli. Thought process poverished. Insight/ Judgement limited. Patient reported uncertainty of how he feels. Could not answer whether he felt depressed or anxious. Reported "sometimes I feel nothing." He reported hopelessness, "I feel like I won't come out on top of this," and reported this in the context of getting better. He could not answer if he felt helpless or worthless. Reported feeling guilty, but could not speak over what. He denied active/passive suicidal ideation, plans and intent. He denied homicidal ideation. He denied AVH. There was no evidence of kaitlin delusions. ? PI. Reported having a positive visit with his brother Elfego last night. Patient could not elaborate on visit. Patient reported tolerating medications well and denied untoward medication effects. Remained agreeable to continue taking them. Patient appears to be making slow progress. Will continue current medications over the weekend, and re-evaluate presentation on 10/02/16. PLAN: 1. Repeat EKG today given persistent tachycardia. 2. Continue current meds. 3. Li level scheduled on 10/01/16 at 06:00. 4. Dispo planning per primary team.
[2016-09-29 15:30] VITALS: BP 132/82
[2016-09-29 20:02] VITALS: BP 147/83
--- NOTE | 2016-09-29 21:53 | NUR ---
PT IS VISIBLE ON UNIT, SITTING IN LOUNGE WITH PEERS BUT NOT INTERACTING WITH THEM. PT MOSTLY WATCHES STAFF AND PEERS. DURING WRAP UP MEETING PT STOOD UP RANDOMLY AND STATED. "I'M DONE. I'M DONE WITH THE [employer], I NEVER SHOULD HAVE DONE WHAT I DID 8 YEARS AGO." THIS MHW SPOKE WITH PT AFTER GROUP AND PT PRESENTED VERY PARANOID. WHILE SPEAKING PT'S HANDS WERE SHAKING AND WAS VERY SLOW TO RESPOND. "NO ONE BELIEVES ME. IT IS NOT SAFE HERE, THEY ARE ALL UNDER COVER CHIEF WHARFINGER." (REFERING TO OTHER PATIENTS). PT WAS REDIRECTED BUT STOPPED SPEAKING WITH ME AFTER I TRIED TO REASSURE HIM HE IS SAFE. NO SI REPORTED. PT HAS A VERY ANXIOUS MOOD AND FLAT/CONSTRICTED AFFECT.
[2016-09-30 07:35] VITALS: BP 144/86
--- NOTE | 2016-09-30 09:01 | NUR ---
ABNORMAL EKG AND IRREGULAR PULSE REPORTED TO DR SETHI. PT DENIES ANY SYMPTOMS. DR GUERRIER ANS SERVICE NOTIFIED. DR SHARMA IS COVERING. RETURN CALL REQUESTED
--- NOTE | 2016-09-30 11:21 | NUR ---
CALL PLACED AGAIN TO DR GUERRIER SERVICE FOR RETUN CALL REGARDING ABNORMAL EKG
[2016-09-30 11:56] VITALS: BP 140/86
--- NOTE | 2016-09-30 12:08 | NUR ---
DR SHARMA RETURNED CALL.VIEWED EKG ON [facility]ER AND STATED THERE WAS NOTHING ACUTE. PT TO HAVE REPEAT EKG TOMORROW AND HAD LABS DRAWN AND SENT TODAY
--- NOTE | 2016-09-30 12:22 | NUR ---
PTS AFFECT IS FLAT AND MOOD IS DEPRESSED. WHEN ASKED HE DENIED SUICIDAL THOUGHTS AT THIS TIME. HE DOES REPORT FEELING ANXIOUS.HE ATTENDED ONE GROUPS AND WAS GENERALLY QUIET THROUGHOUT THE GROUP. HE SITS BY THE NURSES STATION AND APPEARS DISTRACTED AT TIMES
--- NOTE | 2016-09-30 12:43 | CP SOUTH PROGRESS NOTE PSYCH ---
See Addendum Psych (Inpt) Progress Note Progress Note Include the following elements, when applicable: Involvement in the active treatment of the patient with behavioral observations of the patient and the patient's response to the treatment. Review of the ongoing treatment process in the context of the treatment plan. Indication of how multi-disciplinary staff members are carrying out the treatment plan. Plans for future interventions and recommendations for revision of the treatment plan. Liaison with other physicians/providers. Progress Note: Stated that he is somber. Stated that he feels he could not get better, b/c he cannot undo what he did and after several minutes able to state that he used services too much. Unable to elaborate on this. stated that he feels more anxious if someone is watching him. Stated that he has no means to kill himself in the hospital and has no plan to do so. Stated that he does not have current active thoughts of suicide. MSE: older man, well groomed. Significant psychomotor slowing with profound response latency and thought blocking. Poor eye contact. No tics or tremor noted. Withdrawn.Mood depressed. Affect constricted. Thought process concrete; unable to answer many questions due to thought blocking. Content + depression, anhedonia, hopeless. Stated that suicidal thoughts come and go. No active suicidal thoughts now. Denied AH however distracted. Insight impaired, judgment poor. A: 65 y/o man w/ depressive and psychotic sx, significant thought disorder ( blocking, internal preoccupation), severe depression, w/o significant improvement overall. Risk: remains elevated risk of suicide due to severe sx, address w/ staff interaction, engagement, groups, medication. Spends most of the day in the chair next to nursing station, not isolative (but withdrawn). Would not need sitter now but can consider if becoming more isolative. May have worsening of sx if hold lithium temporarily. P: Has been tachycardic and ekg yesterday showed some changes; pulse has skipped beats irregularly. Denied any dizziness, chest pain or other cardiac sx. Will ask hospitalist to see him; ekg changes may be due to lithium and will likely hold dose and re-eval ekg and vitals.
--- NOTE | 2016-09-30 15:39 | IP INCIDENTAL NOTE PSYCH ---
Incidental Note Notation: met w/ patient's brother and friend to give them update about his status, about how delusions may persist vs improve as his psychotic state improves; patient became somewhat more paranoid, talking about undercover audit consultant here and other paranoid statements.
[2016-09-30 15:52] VITALS: BP 154/90
--- NOTE | 2016-09-30 18:09 | NUR ---
PT IS COMPLIANT AND COOPERATIVE. MOOD IS STABLE WITH A FLAT AFFECT. PT EXPRESSED PASSIVE SI DUING 1600 VITALS- STATED HE DOES NOT HAVE A PLAN AND WILL NOT ACT HERE. PT REMAINS MOSTLY NON-VERBAL BUT WILL ANSWER QUESTIONS APPROPRIATELY. PT APPEARS DEPRESSED. PT IS PRESENT IN THE COMMUNITY AND HAS MINIMAL INTERACTION WITH OTHERS. VITALS ARE STABLE, APPETITE IS GOOD.
[2016-09-30 20:01] VITALS: BP 144/78
--- NOTE | 2016-10-01 06:46 | NUR ---
PATIENT SLEPT ALL NIGHT.
[2016-10-01 07:47] VITALS: BP 127/76
[2016-10-01 11:49] VITALS: BP 135/63
--- NOTE | 2016-10-01 12:15 | CP SOUTH PROGRESS NOTE PSYCH ---
Psych (Inpt) Progress Note Progress Note Include the following elements, when applicable: Involvement in the active treatment of the patient with behavioral observations of the patient and the patient's response to the treatment. Review of the ongoing treatment process in the context of the treatment plan. Indication of how multi-disciplinary staff members are carrying out the treatment plan. Plans for future interventions and recommendations for revision of the treatment plan. Liaison with other physicians/providers. Progress Note: Remains paranoid, knows that there are undercover auto club travel counselor waiting to arrest him for something he did in the day room. Unable to engage in any reality testing regarding his delusions, despite several attempts. Asked to be taken out and asked how much longer he has to deal with these fears. Believes that there is nothing that will help him. Attempted to educate him regarding improvement in the intensity of the fears with some medication changes, he appeared amenable. No active thoughts of suicide stated that he is afraid; but that he prefers to be in the day room; that he would be more worried if someone was sitting with him constantly. MSE: older man, well groomed. Less psychomotor slowing and with somewhat less delayed response time today. Continues to have thought blocking. Avoidant eye contact. No movement d/o noted. Mood depressed. Affect blunted. Thought process concrete; marginally more interactive today. Content + prominent paranoia; anhedonia, hopeless. No active suicidal thoughts. Denied AH. Insight impaired, judgment poor. Reviewed ekg from 09/29 and 10/01; largely unchanged, qtc from 465-468. Previous was 471. A: 65 y/o man w/ depressive and psychotic sx, significant thought disorder ( blocking, internal preoccupation), severe depresssive and psychotic sx, w/o significant improvement overall. Risk: remains elevated risk of suicide due to severe sx, address w/ staff interaction, engagement, groups, medication. Spends most of the day in the chair next to nursing station, paranoid about undercover auto club travel counselor, but not isolative; and prefers to be in the community. No change since holding lithium yesterday. P: Some improvement in tachycardia; labs reviewed wnl. Li level 0.3. Repeat EKG similar to ekg on 09/29. Qtc borderline but is close to his baseline. Mental status unchanged largely; marginally more reactive today. All psychotropic medications have cardiac risk; risk/benefit considered in continuing to hold Li vs. continuing low dose of Li; vs. changing his other medication. Will add in a lower dose of olanzapine during the day time (2.5mg) to target psychotic sx; re- eval vitals and would consider lithium again.
--- NOTE | 2016-10-01 14:22 | NUR ---
PT IS COMPLIANT AND COOPERATIVE. MOOD IS STABLE WITH A FLAT AFFECT. PT EXPRESSED PASSIVE SI DURING 0800 VITALS- STATES HE HAS NO PLAN AND WILL NOT ACT HERE. PT REMAINS MOSTLY NONVERBAL UNLESS SPOKEN TO FIRST. PT IS PRESENT ON THE UNIT, HAS MINIMAL INTERACTION WITH PEERS AND STAFF. PT IS ATTENDING GROUPS. VITALS ARE STABLE, APPETITE IS GOOD.
[2016-10-01 15:54] VITALS: BP 140/84
--- NOTE | 2016-10-01 16:38 | NUR ---
PT GUARDED AND PARANOID. ADMITTED TO FEELING "VERY" ANXIOUS RESULTING IN HAND TREMOR. ADMITTED TO HEARING "MY OWN VOICE" TELLING HIM NEGATIVE THINGS, BUT WOULD NOT ELABORATE. PER EDUIN WARREN RN, DURING DAY, PT REPORTED SI "BUT I WON'T DO ANYTHING HERE." DR AGUSTIN MADE AWARE. PT VISIBLE ON UNIT.
[2016-10-01 19:46] VITALS: BP 130/91
--- NOTE | 2016-10-01 20:51 | NUR ---
PT IS IN [place], NOT INTERACTING WITH PEERS, MINIMAL INTERACTION WITH STAFF. PT HAS PARANOID THOUGHTS, AND IS GUARDED, WITHDRAWN AND ISOLATIVE FROM THE REST OF POPULATION. PT IS THOUGH COOPERATIVE WITH STAFF AND COMPLIANT WITH UNIT RULES. PT MOOD IS STABLE, AFFECT IS CONSTRICTED/FLAT, COMMUNICATION IS MINIMAL, AND APPETITE IS NORMAL. PT MADE STATEMENT OF SI DURING VITALS AT 1600, AND WAS ASKED WHETHER HE HAD A PLAN FOR ON THE UNIT HE RESPONDED WITH NO, AND WHEN ASKED WHETHER HE WOULD CARRY ANYTHING OUT ON THE UNIT HE RESPONDED WITH NOT. THE [facility] NURSE WAS NOTIFIED OF HIS RESPONSES.
--- NOTE | 2016-10-01 21:37 | NUR ---
Pt is out in the community most of the shift affect is still flat, paranoid and guarded still. Pt is compliant and cooperative with the staff. Vital signs are stable c/o no pain. Will continue to monitor the pt behavior overnight.
--- NOTE | 2016-10-02 04:33 | NUR ---
SLEPT WELL, USED CPAP 90% OF THE NIGHT, HEMATURIA PERSISTS.
[2016-10-02 07:43] VITALS: BP 152/80
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
[2016-10-02 12:37] VITALS: BP 127/72
--- NOTE | 2016-10-02 14:24 | NUR ---
PT IS COMPLIANT AND COOPERATIVE. PT IS OUT IN COMMUNITY INTERACTING A LITTLE BIT WITH PEERS. PT IS SLIGHTLY MORE TALKATIVE WITH PEERS WHEN THEY TRY TO [employer]LL SPEAKING MORE DURING GROUPS. PT IS ATTENDING ALL GROUPS. PT MOOD IS STABLE WITH A CONSTRICTED AFFECT. PT DENIES SI
[2016-10-02 16:11] VITALS: BP 139/78
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
--- NOTE | 2016-10-02 17:31 | Cons- Cardiology ---
General Information and HPI Consulting Request Date of Consult: 10/02/16 Requested By: GREG SORIANO MD Reason for Consult: Abnormal EKG History of Present Illness: The patient is a 66-year-old male with history of hyperlipidemia and bipolar disorder who is admitted for depression. He is noted to have sinus tachycardia and abnormal EKG. His lithium has been on hold for the past 24 hours, and I am asked to evaluate whether should be restarted. He denies any cardiac symptoms. No chest pain. No palpitations. No syncope. No lightheadedness or dizziness. No nausea or vomiting. No diaphoresis. Allergies/Medications Allergies: Coded Allergies: No Known Allergies (11/12/15) Home Med List: Atorvastatin Calcium (Lipitor) 40 MG TABLET 40 MG PO 5PM PRN choleterol ( Reported) Ezetimibe (Zetia) 10 MG TABLET 10 10MG PO DAILY cholesterol (Reported) Ezetimibe (Zetia) 10 MG TABLET 10 MG PO DAILY CHOLESTEROL (Reported) Olanzapine (Zyprexa) 10 MG TABLET 10 MG PO AT BEDTIME mood,thoughts (Reported ) Rosuvastatin Calcium (Crestor) 20 MG TABLET 20 MG PO DAILY CHOLESTEROL ( Reported) Venlafaxine HCl (Effexor XR) 75 MG CAP.ER.24H 225 MG PO DAILY depression, anxiety (Reported) Current Medications: Current Medications Sig/Dyllan Start time Last Medication Dose Route Stop Time Status Admin Atorvastatin Calcium 40 MG 1700 07 1700 AC 10/02 PO 1737 Ezetimibe 10 MG DAILY 09/23 1000 AC 10/02 PO 0807 Lorazepam 0.5 MG Q8P PRN 10/02 0830 AC PO 10/09 0822 Lorazepam 0.5 MG Q6P PRN 09/23 1400 DC 10/01 PO 10/07 1358 2235 Olanzapine 2.5 MG 1400 10/01 1400 AC 10/02 PO 1446 Olanzapine 5 MG 0800 09/28 0800 AC 10/02 PO 0806 Olanzapine 15 MG AT BEDTIME 09/24 2200 AC 10/01 PO 2235 Venlafaxine HCl 225 MG DAILY 09/23 1000 AC 10/02 PO 0806 Review of Systems Review of Systems: No fever. No chills. No rash. No tremor. No hemoptysis. No hematemesis. All other systems were reviewed, and were noted to be negative. Past History Travel History Traveled to [place] past 21 day No Medical History Blood Transfusion Hx: No Type of Reaction: none Neurological: NONE EENT: NONE Cardiovascular: NONE Respiratory: NONE Gastrointestinal: constipation Hepatic: NONE Renal: NONE Musculoskeletal: NONE Psychiatric: depression Endocrine: NONE Blood Disorders: NONE Cancer(s): NONE ROVING CHANGER/Reproductive: NONE Other Medical Hx: none Surgical History Surgical History: non-contributory Family History Relations & Conditions If Any: FATHER Myocardial infarction Psychosocial History Where Do You Live? Home Employment History Employment: Retired Exam & Diagnostic Data Vital Signs and I&O Vital Signs Date Time Temp Pulse Resp B/P Pulse O2 O2 Flow FiO2 Ox Delivery Rate 10/02 1611 96 139/78 10/02 1237 98 127/72 10/02 0743 97.5 104 152/80 10/01 1946 96.9 92 130/91 Physical Exam: Gen: The patient is in no acute distress HEENT: Normal nose, ears, and oropharynx. Pupils equal bilaterally. Conjunctiva normal. Neck: Supple with no JVD, no masses, and no thyromegaly Lungs: Clear to auscultation with normal respiratory effort Heart: RRR, S1, S2, no murmurs. No peripheral edema, 2+ pulses in the lower extremities bilaterally Abdomen: Soft, nontender, no masses. No hepatomegaly. No splenomegaly Extremities: No clubbing or cyanosis. Normal muscle strength in the upper and lower extremities Skin: Normal skin turgor with no skin ulcers or lesions noted. Neuro: Cranial nerves intact. Sensation intact Psych: Alert and oriented 3 with depressed affect Labs/Doc Results: Laboratory Tests 10/01 0615 Toxicology [place] (0.6 - 1.2 mmol/L) 0.3 L Diagnostic Data EKG Results EKG tracing from October 01 is independently reviewed, and reveals normal sinus rhythm at 93, premature atrial complexes, nonspecific ST-T abnormality Assessment/Plan Assessment/Plan The patient is a 66-year-old male with history of hyperlipidemia and bipolar disorder admitted for depression. He is noted to have a mildly abnormal EKG with no recent cardiac symptoms. He has been on lithium, however this was placed on hold 24 hours ago. * There is no cardiac contraindication to restarting lithium at this time. * I recommend obtaining an echocardiogram to evaluate for structural abnormality is given the abnormal EKG. Consult Acknowledgment - Thank you for your consult request.
[2016-10-02 19:50] VITALS: BP 143/82
--- NOTE | 2016-10-02 21:48 | NUR ---
PT IS VISIBLE ON UNIT BUT HAS MINIMAL INTERACTION WITH PEERS AND STAFF. PT MOSTLY SITS IN LOUNGE AND WATCHES STAFF. APPEARS ANXIOUS AND PARANOID, STATING HE IS WORRIED ABOUT DIFFERENT FINANCIAL ISSUES. ATTENDED WRAP UP MEETING AND STARTED OFF GUARDED. DURING THE GROUP HE STATED "THIS CAN'T GO ON." AND EXPLAINED THAT HE COMMITED FRAUD. PT SPOKE WITH AUTOMATIC BUFFER. NO SI REPORTED. PT HAS AN ANXIOUS MOOD AND CONTRICTED/FLAT AFFECT.
--- NOTE | 2016-10-02 23:17 | NUR ---
Patient reports feeling like fraud. Patient believes he has committed insurance fraud by continuing to be admitted to [facility]. Patient reports "not paying" his insurance properly from his SSI checks to [employer]. Able to redirect the patient toward focusing on present treatment and keeping to plans set forth by doctors and nurses.
[2016-10-03 07:47] VITALS: BP 155/91
--- NOTE | 2016-10-03 10:17 | CP SOUTH PROGRESS NOTE PSYCH ---
Psych (Inpt) Progress Note Progress Note Include the following elements, when applicable: Involvement in the active treatment of the patient with behavioral observations of the patient and the patient's response to the treatment. Review of the ongoing treatment process in the context of the treatment plan. Indication of how multi-disciplinary staff members are carrying out the treatment plan. Plans for future interventions and recommendations for revision of the treatment plan. Liaison with other physicians/providers. Progress Note: [I discussed this patient's progress to date, current mental status, treatment process in the context of the treatment plan, and discharge planning with staff/ team in the daily morning inpatient team meeting. I also met with the patient myself in individual session.] SUBJECTIVE: "I'm not good." OBJECTIVE: Current Medications Sig/Dyllan Start time Last Medication Dose Route Stop Time Status Admin Atorvastatin Calcium 40 MG 1700 09/23 1700 AC 10/02 PO 1737 Benztropine Mesylate 1 MG 0800,10/03 1015 AC PO Benztropine Mesylate 1 MG 0800,10/03 0930 DC PO Ezetimibe 10 MG DAILY 09/23 1000 AC 10/03 PO 0822 Haloperidol 5 MG 0800,10/03 1015 AC PO Haloperidol 5 MG 0800,0 10/03 0930 DC PO [place] Carbonate 300 MG 0800,10/03 0900 AC PO Lorazepam 0.5 MG Q8P PRN 10/02 0830 AC PO 10/09 0822 Olanzapine 2.5 MG 1400 10/01 1400 DC 10/02 PO 1446 Olanzapine 5 MG 0800 09/28 0800 DC 10/02 PO 0806 Olanzapine 15 MG AT BEDTIME 09/24 2200 DC 10/02 PO 2134 Venlafaxine HCl 225 MG DAILY 09/23 1000 AC 10/03 PO 0823 Vital Signs Date Time Temp Pulse Resp B/P Pulse O2 O2 Flow FiO2 Ox Delivery Rate 10/03 0747 97.5 100 155/91 10/02 1950 96.9 112 143/82 10/02 1611 96 139/78 10/02 1237 98 127/72 ASSESSMENT: PEC to on 10/07/16. Reviewed at length voluntary admission form. Patient read form at length. All questions answered by this short story writer and Alena Adams LCSW. Patient agreed to sign in voluntarily. Chart reviewed. Patient consulted by Dr. Neves from cardiology for tachycardia and mildly abnormal EKG with no recent cardiac symptoms. Per Dr. Neves, there is no contraidication to restarting [place] for mood stabilization and anti-suicidal properties. Per Dr. Neves, echocardiogram was ordered to evaluate for structural abnormality. Met with patient today, together with Alena Adams LCSW. On encounter, patient remained with paranoid thoughts, reporting "I'm still lying to everyone." Patient remained preocuppied over this thought and "my lies." Patient remained unable to engage in any reality testing today. Continued thought blocking observed. Speech delayed. Less psychomotor slowing observed. Patient denied AH and VH, however thought process remained distracted. Affect remained blunted. Mood "depressed" and appeared withdrawn. Reported fleeting passive SI, denied plans and intent. Evaluated need for 1:1 sitter, however at present, I feel this would increase the patient's paranoia. Patient remains visible in the milieu near nurses station, and attending groups. He denied active suicidal thoughts, and was able to contract for safety while on unit. He denied homicidal ideation. Since restart of Zyprexa on 09/22/16 and uptitration to 22.5mg daily in divided doses, there has been minimal improvement in the patient's paranoid thought process, despite tolerating Zyprexa well. AIMS=0. Recommendation is to switch to Haldol in attempt to improve clarity of patient's thought process. Reviewed the risk/benefit/SE profiles of Haldol with the patient, including irreversible movement disorders, metabolic and cardiac risks. Patient agreeable to switching Zyprexa to Haldol. Plan reviewed with Dr. Matthew. PLAN: 1. Discontinue Zyprexa. Start Haldol 5mg BID today for psychosis. 2. Start Cogentin 1mg BID today to prevent EPS. 3. Restart [place] 300mg BID for suicidal ideation and mood stabilization. Li level scheduled on 10/06/16 at 0600. 4. Echocardiogram ordered per Dr. Neves from cardiology. 5. Continue monitoring the patient for safety, suicidal ideation, and mood. 6. Will continue monitoring QTc. 7. Dispo planning per primary team.
--- NOTE | 2016-10-03 10:58 | SOCIAL WORKER PROG NOTE PSYCH ---
Social Work Progress Note Progress Note Met with patient and Viri Rao APRN this AM. Patient continues to present as paranoid and psychotic. Patient was informed that his PEC is expiring within the next few days and he was offerred to sign in to the hospital voluntarily. The voluntary process was fully explained to patient and he read over to himself the entire voluntary form. Patient agreed to sign in to the hospital voluntarily and signed the form. Patient then agreed to trial Haldol in replacement of Zyprexa due to showing little to no improvement on Zyprexa. Patient was initially resistent and expressed some concern that we would be giving him a "fake pill." Patient did agree though and will start new medication today. We will try to arrange another family meeting with his brother/sister at some point this week.
[2016-10-03 11:40] VITALS: BP 140/80
--- NOTE | 2016-10-03 13:53 | NUR ---
PT DEPRESSED. PSYCHOMOTOR RETARDED. PT REPORTS SUICIDAL THOUGHTS, BUT HAS NO PLAN TO HURT HIMSELF AND FEELS SAFE IN THE HOSPITAL- THE DOCTOR WAS NOTIFIED. MED CHANGES WERE MADE- PT TOOK MEDS THIS AM WITH STRONG ENCOURAGEMENT FROM STAFF. HE ATTENDED 1 OF 2 GROUPS.
[2016-10-03 16:00] VITALS: BP 144/88
[2016-10-03 19:38] VITALS: BP 150/86
--- NOTE | 2016-10-03 22:43 | NUR ---
PT IS VISIBLE ON UNIT, SITTING IN LOUNGE AND MOSTLY OBSERVING PEERS AND STAFF. MINIMAL INTERACTION WITH ANYONE. PT IS COOPERATIVE AND COMPLIANT. ATTENDED WRAP UP MEETING AND PARTICIPATED MORE THAN PREVIOUS MEETINGS. NO COMPLAINTS OR SI REPORTED. PT HAS AN ANXIOUS MOOD AND CONSTRICTED AFFECT.
[2016-10-04 07:37] VITALS: BP 127/88
--- NOTE | 2016-10-04 09:13 | SOCIAL WORKER PROG NOTE PSYCH ---
Social Work Progress Note Progress Note Met with patient this AM, he did appear somewhat more organized with less thought blocking. He continued to ruminate about insurance and believing this current hospitalization is not covered and fear that he is not going to be able to afford the bill once discharged. Patient reassured by this signwriter that his stay is covered and I have been completing insurance reviews ensuring that he is authorized. Patient appeared to understand but still was hesitant. Patient has been attending groups on the unit more regularly and is engaging slightly more. Patient encouraged to make a goal for the day and he responded that he does not know what he coul achieve.
--- NOTE | 2016-10-04 10:13 | SOCIAL WORKER PROG TO GOALS ---
Progress Toward Goals Strengths/Capabilities: retired/worked 40+ yrs at [employer]. 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 Engaged with lawson OROURKE for several yrs. Physical Limitations (Interventions): none reported Patient Identified Trmt Goals: "I don't want to be guilty" Discharge Plan: [facility] Problem/Goals #1 Problem #1: suicidal ideation Goal (Short Term): Today I will attend 2 groups Today I will identify 2 stressors Today I will identify 2 positive supports Today I will work on recognizing 3 emotions I am feeling Goal (Cookie Breaker): Be free of suicidal thoughts/attempts Develop 3 coping skills to deal with depression Identify 3 positive support systems to call in crisis Develop a crisis plan with 3 lennon people Identify 2 positive traits per week about myself Identify 2 things I have to look forward to Identify 2 positive people in my life and 1 thing I appreciate about them Interventions: Learn ways to manage depressive symptoms accordingly and identify positive supports to manage life stressors and mood fluctuations. Progress: Patient continues to present with psychotic symptoms. Patient is paranoid, delusional and delayed with speech and thought.
--- NOTE | 2016-10-04 10:17 | NUR ---
PT IS STABLE WITH FLAT AFFECT. PT IS WANDERING THE UNIT WITH MINIMAL TO NO INTERACTION WITH PEERS/STAFF. PT ATTENDED PLANNING MEETING AND REPORTED HIS GOAL IS TO "LIE MY WAY THROUGH THE DAY BECAUSE IT'S ALL I AM GOOD AT". PT WAS ENCOURAGED TO FOCUS ON ONE GOOD ATTRIBUTE INSTEAD. PT LATER REPORTED THAT TALKING TO HIM WAS "POISON". PT WAS AGAIN ENCOURAGED TO FOCUS ON POSITIVITY SUCH THE ABILITY TO PROVIDE SELF CARE, ETC. VS ARE STABLE AND PT DENIES ANY SI/HI.
--- NOTE | 2016-10-04 12:11 | CP SOUTH PROGRESS NOTE PSYCH ---
See Addendum Psych (Inpt) Progress Note Progress Note Patient seen with Viri Willis APRN at 10:05 a.m. The patient is a 66 yo DWM with diagnosis of major depression with psychotic features. Case discussed in team meeting and with Alab. Staff reports that the patient's speech has become more spontaneous in the last day. Past psychiatric hx: Followed at OPS by Dr. Samano. Apparently patient was tapered down off Zyprexa and was intermittently compliant with Effexor XR prior to admission. Hx inpatient tx on 2007. Hx planning a suicide attempt in 2007. Substance hx: Denies tobacco. Occasional beer. No street drugs. Rx: Medication list reviewed. Active psychiatric medications: [place] carbonate 300 mg b.i.d. Effexor XR 225 mg daily Haldol 5 mg b.i.d. Cogentin 1 mg b.i.d. P.r.n. Ativan Was on Zyprexa 22.5 mg/day until yesterday. Allergies: Had an allergic response in the past but it was not found to be medication- related. PMH: Hypercholesterolemia. Tonsillectomy. Tachycardia improving. HR was 95 this morning. Family psychiatric and substance abuse hx: Negative. No suicides. Social hx: . No children. Lives alone in his home in [place]. Reportedly brother and sister are supports. 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 Mental status examination: Ambulatory, casually dressed WM sitting in a chair in [facility]. Calm, polite and cooperative. Very mild psychomotor retardation present. No psychomotor agitation. Possible masked-like facies. Speech is soft-spoken and slowed. There is some poverty of speech. Affect is calm and blunted to flat and depressed. Reports he has been distraught lately about his life, he guesses. Has been feeling things closing in on him. States he thinks too much. Stressors: "there would be much work to be done, work on myself." Reports he becomes stressed when asked too many questions (such as now). Mood: "I feel like I'm trapped here." Denies feeling sad. He does feel worried, "that people found out that I'm a liar, a cheat, inconsiderate, the list goes on an on." Feels hopeless, helpless and guilty, but not helpless. Reports SI, stating "it can't be done here." Denies HI. Reports AH, "just my own voice, everyone hears their own inner voice." Denies VH. Reports PI, "in my way of thinking, I might be harasssed." Denies magical wor[place]ton. Insight and judgment are limited. Thinking is slowed. Ox3. Sleep: reports usually sleeping well. Reports having an appetite. Energy: reports he has to get things done but energy is low. IMPRESSION: Major depression with psychotic features. Agree with diagnosis and current management. Suggest MMSE, check U/A and monitor for EPS. Consider ECT if the patient does not continue to improve.
[2016-10-04 12:26] VITALS: BP 150/79
--- NOTE | 2016-10-04 13:46 | NUR ---
10/04 1:45PM Patient refused Echo reports concerns about cost. Patient educated yet remains resistive. Dr. Neves off call today. Will try 10/05/16.
[2016-10-04 15:51] VITALS: BP 145/68
--- NOTE | 2016-10-04 16:14 | CP SOUTH PROGRESS NOTE PSYCH ---
Psych (Inpt) Progress Note Progress Note Include the following elements, when applicable: Involvement in the active treatment of the patient with behavioral observations of the patient and the patient's response to the treatment. Review of the ongoing treatment process in the context of the treatment plan. Indication of how multi-disciplinary staff members are carrying out the treatment plan. Plans for future interventions and recommendations for revision of the treatment plan. Liaison with other physicians/providers. Progress Note: [I discussed this patient's progress to date, current mental status, treatment process in the context of the treatment plan, and discharge planning with staff/ team in the daily morning inpatient team meeting. I also met with the patient myself in individual session.] SUBJECTIVE: "I'm distraught lately about my life. Things are closing in on me here." OBJECTIVE: Current Medications Sig/Dyllan Start time Last Medication Dose Route Stop Time Status Admin Atorvastatin Calcium 40 MG 1700 09/23 1700 AC 10/04 PO 1630 Benztropine Mesylate 1 MG 0800,10/03 1015 AC 10/04 PO 0755 Ezetimibe 10 MG DAILY 09/23 1000 AC 10/04 PO 0756 Haloperidol 5 MG 0800,10/03 1015 AC 10/04 PO 0755 [place] Carbonate 300 MG 0800,10/03 0900 AC 10/04 PO 0756 Lorazepam 0.5 MG Q8P PRN 10/02 0830 AC 10/04 PO 10/09 0822 1339 Venlafaxine HCl 225 MG DAILY 09/23 1000 AC 10/04 PO 0756 Vital Signs Date Time Temp Pulse Resp B/P Pulse O2 O2 Flow FiO2 Ox Delivery Rate 10/04 1551 97 145/68 10/04 1226 98 150/79 10/04 0737 98.1 95 127/88 10/03 1938 97.4 98 150/86 ASSESSMENT: Case reviewed with Dr. Matthew and treatment team. Met with the patient today, together with Dr. Matthew. On encounter today, the patient presented calm and cooperative. Less psychomotor retardation was observed than on previous encounters. He was oriented to person, place and time. Eye contact was direct. Affect appeared blunted. Speech was mildly poverished and slowed, but less delayed than on previous encounters. Able to answer questions more spontaneously today than on previous encounters. However, reported feeling stressed when asked too many questions. When asked about his mood, he stated "I feel like I'm trapped here." Reported stress of there being "too much work to be done, work on myself." He reported he would not take advantage of help here. Reported paranoid ideation, "I've already been found out. I'm a liar. I'm a cheat. I'm inconsiderate. The list goes on and on. " Patient could not identify why he feels he is a liar, a cheat, or inconsiderate. He denied sadness. He reported feeling worried, hopeless and guilty. He denied feeling helpless. He reported suicidal ideation, and that "it can't be done here." Patient contracted to safety on unit. He denied suicide plans or intent. He denied homicidal ideation. He denied visual hallucinations. He reported auditory hallucination of his own inner voice. Reported sleep is good. Reported having an appetite. Reported low energy level. Patient reported tolerating medications well and denied untoward effects. No evidence of movement disorder. Per nursing staff, the patient refused ordered echocardiogram d/t concern he would not be able to financially afford test. PLAN: 1. Continue current medications. 2. Continue monitoring the patient on unit for safety, suicidal ideation, mood, and psychosis. 3. UA ordered. 4. Consider MMSE. 5. Will continue monitoring patient's progress, and if there is no improvement on antipsychotic medication, will consider referral for ECT. 6. Reattempt echocardiogram tomorrow.
[2016-10-04 20:17] VITALS: BP 148/83
--- NOTE | 2016-10-04 23:04 | NUR ---
PT SEEMS VERY ANXIOUS, MAKING STATEMENTS INDICATING A STRESSED STATE. PT HAS REMAINS COOPERATIVE WITH STAFF AND PEERS AND COMPLIANT WITH UNIT RULES. PT IS ISOLATIVE AND WITHDRAWN, STAYING IN [place], THOUGH NOT INTERACTING WITH PEERS AND MINIMALLY WITH STAFF. PT MOOD IS STABLE, AFFECT IS FLAT AND CONSTRICTED, COMMUNICATION IS QUIET AND SPARSE, AND APPETITE IS NORMAL. PT DENIES SI AT THIS TIME.
--- NOTE | 2016-10-05 04:13 | NUR ---
patient slept well, no issues
[2016-10-05 07:41] VITALS: BP 130/73
--- NOTE | 2016-10-05 08:20 | CP SOUTH PROGRESS NOTE PSYCH ---
See Addendum Psych (Inpt) Progress Note Progress Note Include the following elements, when applicable: Involvement in the active treatment of the patient with behavioral observations of the patient and the patient's response to the treatment. Review of the ongoing treatment process in the context of the treatment plan. Indication of how multi-disciplinary staff members are carrying out the treatment plan. Plans for future interventions and recommendations for revision of the treatment plan. Liaison with other physicians/providers. Progress Note: [I discussed this patient's progress to date, current mental status, treatment process in the context of the treatment plan, and discharge planning with staff/ team in the daily morning inpatient team meeting. I also met with the patient myself in individual session.] SUBJECTIVE: "The more I try to be helpled, the worse I become." OBJECTIVE: Current Medications Sig/Dyllan Start time Last Medication Dose Route Stop Time Status Admin Atorvastatin Calcium 40 MG 1700 09/23 1700 AC 10/04 PO 1630 Benztropine Mesylate 1 MG 0800,10/03 1015 AC 10/04 PO 2121 Ezetimibe 10 MG DAILY 09/23 1000 AC 10/04 PO 0756 Haloperidol 5 MG 0800,10/03 1015 AC 10/04 PO 2121 [place] Carbonate 300 MG 0800,10/03 0900 AC 10/04 PO 2121 Lorazepam 0.5 MG Q8P PRN 10/02 0830 AC 10/04 PO 10/09 0822 1339 Venlafaxine HCl 225 MG DAILY 09/23 1000 AC 10/04 PO 0756 Vital Signs Date Time Temp Pulse Resp B/P Pulse O2 O2 Flow FiO2 Ox Delivery Rate 10/05 0741 97.6 92 130/73 10/04 2016 96.5 97 148/83 10/04 1551 97 145/68 10/04 1226 98 150/79 10/05/16 MMSE = 29/30 (see in paper chart). ASSESSMENT: Collateral obtained from Dr. Donavan Samano (pt's [facility] outpatient psychiatrist). Updated Dr. Samano on patient's current psychiatric treatment and slow progress. Dr. Samano previously aware of patient's decline, as she had completed his CPS admission interview on 09/22/16. She reported providing pt with lonstanding care in [facility] for MDD with psychotic features. Reiterated that patient had been maintained over years on Effexor XR 225mg daily and varied doses of Zyprexa, which had been tapered off during 07/2016 as patient's psychosis had been stable. She reported his baseline to be fairly functional, strong involvement with his family, and having a small group of friends. At baseline he preferred to be alone, isolative, had been functional working at [employer] for years, and is now retired. He lives alone, and had been able to care for himself. She reported when he was admitted to [facility] on 09/22/16 he was so far from his baseline, and very delusional. She is in agreement of current treatment, and further recommended that if patient's psychosis does not clear, ECT would be the next recommendation, and possible conservatorship by family if he remains gravely disabled. Met with the patient today. He was oriented to person, place, time. Speech remained slowed, but more spontaneous than on previous encounters. Affect remained flat, with no range. Eye contact was direct. When asked how his mood was, reported "better." He was unable to describe how his mood was improved. He reported feeling worthless, helpless, hopeless, and guilty. Reported feeling guilty for "exposing my family to the outcome of this." He clarified that "this " meant the "insurance thing." Continued PI about being charged with insurance fraud. Reported "the longer I'm here, the further and further involved in the story I get." Pt clarified that the "story" meant "me being here for depression. " Patient could not elaborate further on statement. Thought process remained distracted. Continued to report hearing a voice, "my inner voice." Pt would not comment on what this voice tells him. He denied this voice being command in nature, or telling him to harm himself or others. He denied visual hallucinations. He denied suicidal ideation, plans and intent. He denied homicidal ideation. Asked patient today, the reason why he refused scheduled echocardiogram today. He reported fear that insurance wouldn't cover procedure. Reassurance was offered to patient. Explained reason for echocardiogram. Patient verbalized understanding and was agreeable to having procedure completed. Patient reported tolerating medications well and denied untoward medication effects. There was no evidence of tremor or cogwheeling. No evidence of movement disorder. PLAN: 1. Continue current medications. 2. Continue monitoring patient on unit for safety, mood and psychosis. 3. [place] level scheduled tomorrow morning at 0600. 4. If no improvement in psychosis from AP medications, will discuss recommendation of ECT with patient and family.
[2016-10-05 11:48] VITALS: BP 114/78
--- NOTE | 2016-10-05 11:51 | SOCIAL WORKER PROG NOTE PSYCH ---
Social Work Progress Note Progress Note Patient presented today more alert and bright then previous days. He is able to respond quicker to questions and is perseverating less although still concerned about finances and letting down his family. Patient was somewhat disorganized when we met, jumping around with topics and not always responding to questions appropriately. Patient expressed concern about current bills at home and if he could pay them from here. I asked him if he would feel comfortable having his siblings help out temporarily with his fiannces. He has allowed me to speak to his siblings about this. I left a voicemail for Mitzi and Elfego, ideally to have them come in for another meeting and also to see if they can provide support with his finances. Patient denied any suicidal thoughts today although did acknowledge some depression. He recalled that earlier in the week he stated he was suicidal, but denied feeling the same way today.
--- NOTE | 2016-10-05 13:12 | NUR ---
PT IS OUT IN COMMUNITY INTERACTING MORE WITH STAFF AND PEERS. PT DOES NOT JUST SIT BY THE FISHTANK ANYMORE BUT WILL SIT WILL PEERS IN THE LOUNGE AREA. PT WILL ANSWER QUESTIONS DIRECTED AT HIM. PT IS ACTIVE IN SOME GROUPS BUT IS PASSIVE IN OTHERS. PT MOOD IS STABLE WITH A FLAT AFFECT. PT DENIES SI THOUGHTS
[2016-10-05 16:09] VITALS: BP 134/61
[2016-10-05 19:44] VITALS: BP 129/64; BP 143/73
--- NOTE | 2016-10-05 22:11 | NUR ---
PT IS ISOLATIVE AND WITHDRAWN, IN [place], BUT AWAY FROM GENERAL POPULATION, SITTING BY SELF OFTEN. PT IS NOT INTERACTING MUCH, IF AT ALL WITH STAFF/PEERS, BUT DID ATTEND WRAP UP GROUP. PT IS COOPERATIVE WITH STAFF AND PEERS, AND COMPLIANT WITH UNIT RULES. PT APPEARS ANXIOUS, MOOD STABLE, AFFECT FLAT/CONSTRICTED. PT COMMUNICATION IS SPARSE, AND APPETITE IS NORMAL. PT DENIES SI ATH THIS TIME.
[2016-10-06 07:33] VITALS: BP 127/80
--- NOTE | 2016-10-06 11:00 | ECHOCARDIOGRAM REPORT ---
MARLEN CASEY Age: 66 : 1950 Gender: M Exam Date: 10/05/2016 16:12 Exam Location: [facility] Ht (in): 65 Wt (lb): 154 BSA: 1.80 BP: 114 / 78 Ordering Physician: LARRY HOWARD M Referring Physician: LARRY HOWARD MD Technologist: Charlotte Rhodes [facility] Room Number: B3-02 Indications: ARRHYTHMIAS Rhythm: Sinus Technical Quality: Fair FINDINGS Left Ventricle Normal global left ventricular size, wall thickness, systolic function with no obvious regional wall motion abnormalities. Normal left ventricular ejection fraction visually estimated at >60%. Right Ventricle Normal right ventricular size and function. Right Atrium Normal right atrial size. Left Atrium Normal left atrial size. Mitral Valve Mild mitral annular calcification. Trace mitral regurgitation. Aortic Valve Aortic valve mildly thickened.no aortic stenosis. No aortic regurgitation. Tricuspid Valve Tricuspid valve not well visualized, grossly normal. Trace tricuspid regurgitation. No evidence of pulmonary hypertension. Pulmonic Valve Pulmonic valve not well visualized, grossly normal. Pericardium No pericardial effusion. Great Vessels Normal size aortic root. CONCLUSIONS Normal global left ventricular size, wall thickness, systolic function with no obvious regional wall motion abnormalities. Normal left ventricular ejection fraction visually estimated at > 60%. Trace tricuspid regurgitation. No evidence of pulmonary hypertension. Larry Howard M.D. (Electronically Signed) Final Date: 06 October 2016 10:59 MEASUREMENTS (Male / Female) Normal Values 2D ECHO LV Diastolic Diameter PLAX 4.6 cm 4.2 - 5.9 / 3.9 - 5.3 cm LV Systolic Diameter PLAX 2.8 cm 2.1 - 4.0 cm LV Fractional Shortening PLAX 39.1 % 25 - 46 % LV Ejection Fraction 2D Teich 69.6 % IVS Diastolic Thickness 0.7 cm LVPW Diastolic Thickness 0.9 cm LV Relative Wall Thickness 0.3 RV Internal Dim ED PLAX 2.4 cm 1.9 - 3.8 cm LVOT Diameter 2.1 cm Aortic Root Diameter 2.6 cm LA Systolic Diameter LX 3.4 cm 3.0 - 4.0 / 2.7 - 3.8 cm LA Volume 22.0 cm 18 - 58 / 22 - 52 cm Ascending Aorta Diameter 3.0 cm DOPPLER AV Peak Velocity 119.0 cm/s AV Peak Gradient 5.7 mmHg AV Mean Velocity 90.5 cm/s AV Mean Gradient 4.0 mmHg AV Velocity Time Integral 23.5 cm LVOT Peak Velocity 94.7 cm/s LVOT Peak Gradient 3.6 mmHg LVOT Mean Velocity 62.2 cm/s LVOT Mean Gradient 2.0 mmHg LVOT Velocity Time Integral 16.9 cm LVOT Stroke Volume 58.5 cm AV Area Cont Eq vti 2.5 cm AV Area Cont Eq pk 2.8 cm MV Peak Velocity 85.0 cm/s MV Peak Gradient 2.9 mmHg MV Mean Velocity 49.3 cm/s MV Mean Gradient 1.0 mmHg Mitral E Point Velocity 52.3 cm/s Mitral A Point Velocity 70.6 cm/s Mitral E to A Ratio 0.7 MV PHT Velocity 55.1 cm/s MV Deceleration [place] 132.0 cm/s MV Pressure Half Time 125.2 ms MV Area PHT 1.8 cm MV Deceleration Time 325.0 ms TR Peak Velocity 205.0 cm/s TR Peak Gradient 16.8 mmHg Right Atrial Pressure 5.0 mmHg Pulmonary Artery Systolic Pressu 21.8 mmHg Right Ventricular Systolic Press 21.8 mmHg PV Peak Velocity 108.0 cm/s PV Peak Gradient 4.7 mmHg PV Mean Velocity 68.3 cm/s PV Mean Gradient 2.0 mmHg PV Velocity Time Integral 17.8 cm LV E' Lateral Velocity 9.9 cm/s Mitral E to LV E' Lateral Ratio 5.3 LV E' Septal Velocity 6.0 cm/s Mitral E to LV E' Septal Ratio 8.7
[2016-10-06 12:34] VITALS: BP 130/74
--- NOTE | 2016-10-06 13:01 | CP SOUTH PROGRESS NOTE PSYCH ---
Psych (Inpt) Progress Note Progress Note Include the following elements, when applicable: Involvement in the active treatment of the patient with behavioral observations of the patient and the patient's response to the treatment. Review of the ongoing treatment process in the context of the treatment plan. Indication of how multi-disciplinary staff members are carrying out the treatment plan. Plans for future interventions and recommendations for revision of the treatment plan. Liaison with other physicians/providers. Progress Note: [I discussed this patient's progress to date, current mental status, treatment process in the context of the treatment plan, and discharge planning with staff/ team in the daily morning inpatient team meeting. I also met with the patient myself in individual session.] SUBJECTIVE: "I'm getting caught up in my head because of all the lies I told." OBJECTIVE: Current Medications Sig/Dyllan Start time Last Medication Dose Route Stop Time Status Admin Atorvastatin Calcium 40 MG 1700 09/23 1700 AC 10/05 PO 1703 Benztropine Mesylate 1 MG 0800,10/03 1015 AC 10/06 PO 0747 Ezetimibe 10 MG DAILY 09/23 1000 AC 10/06 PO 0747 Haloperidol 5 MG 0800,10/03 1015 AC 10/06 PO 0747 [place] Carbonate 300 MG 0800 10/07 0800 AC PO [place] Carbonate 450 MG 10/06 2200 AC PO [place] Carbonate 300 MG 0800,10/03 0900 DC 10/06 PO 0747 Lorazepam 0.5 MG Q8P PRN 10/02 0830 AC 10/04 PO 10/09 0822 1339 Venlafaxine HCl 225 MG DAILY 09/23 1000 AC 10/06 PO 0747 Vital Signs Date Time Temp Pulse Resp B/P Pulse O2 O2 Flow FiO2 Ox Delivery Rate 10/06 1234 90 130/74 10/06 0733 97.2 96 127/80 10/05 1944 98.0 84 143/73 10/05 1609 93 134/61 10/05/16 Echocardiogram: Normal global left ventricular size, wall thickness, systolic function with no obvious regional wall motion abnormalities. Normal left ventricular ejection fraction visually estimated at >60%. Trace tricuspid regurgitation. No evidence of pulmonary hypertension. 10/06/16 EKG: Sinus rhythm, rate of 89, with multiple premature V and SV complexes. YOg=091, JX=263. ASSESSMENT: Met with the patient today, together with Alena Adams LCSW. Patient was Ox3. Speech slowed, soft-spoken, more spontanous at times. Less poverty of thought. Less thought blocking evident. Patient with insight into thought blocking and able to verbalize frustration when not being able to respond immediately to others' questions. Affect was mostly blunted, however patient smiled and laughed appropriately for the first time during encounter with this functional tester typewriters and Alena Adams LCSW. Patient shared about having no confidence secondary to not being truthful. Mood: "uncomfortable" related to "answering so many questions." Reported feeling depressed. Reported passive SI. Denied intent or plans. Pt contracted for safety while on unit. Denied homicidal ideation. Denied auditory and visual hallucinations. + PI. Denied AH. Denied VH. Reported feeling guilty and worthless, denied feeling hopeless or helpless. Reported eating and sleeping well. Tachycardia improving. Patient reports tolerating medications well and denied untoward effects. No evidence of movement disorder, cogwheeling or tremor. AIMS=0. PLAN: 1. Increase Li from 300mg BID, to 300mg QAM and 450mg QPM to target suicidal thoughts/depression. 2. Serum Li level, Magnesium ordered for 10/09/16 at 0600. *Please place order for serum potassium on Sunday10/08/16 for 10/09/16 at 0600. Unable to order in advance in [employer] system. 3. Continue Haldol 5mg BID and Cogentin 1mg BID. 4. Continue Effexor XR 225mg daily. 5. Monitor ADLS. 6. Dispo planning per primary team.
--- NOTE | 2016-10-06 14:13 | NUR ---
PT HAS BEEN ATTENDING GROUPS AND HE IS TAKING HIS MEDS. HE REPORTED THAT HIS GOAL TODAY WAS TO STOP LYING TO HIMSELF. HE STATES HE FEELS "TRAPPED IN HIS THOUGHTS". HE DENIED SUICIDAL THOUGHTS THIS SHIFT
--- NOTE | 2016-10-06 16:21 | SOCIAL WORKER PROG NOTE PSYCH ---
Social Work Progress Note Progress Note Patient continues to show improvement in his treatment. He had a meeting today with myself and Viri Willis APRN. Patient for the first time smiled during our meeting and was able to joke around with us. Patient was able to acknowledge his thought blocking today and reported feeling frustrated that when people ask him questions he is unable to respond immediately and sometimes feels stuck. He reports that he has been attending groups on the unit but has a difficult time paricipating mainly due to this thought blocking. Patient identified feeling depressed today with passive SI. He contracted that he does not have any thoughts or plans to hurt himself while in the hospital. Patient is aware that we are planning for a family meeting early next week with his siblings Elfego and Mitzi. Patient is looking forward to this meeting. His friend Anabel is planning to come visit him this evening and also help him pay some bills which he has been expressing concern over. Review was completed with patients insurance today , waiting for call back with authorization for further stay.
[2016-10-06 16:24] VITALS: BP 146/64
[2016-10-06 19:42] VITALS: BP 151/63
--- NOTE | 2016-10-06 22:12 | NUR ---
Pt is out in the community constricted and flat. Pt c/o feeling scared towards another pt. Pt is compliant and cooperative with the staff. Vital signs are stable c/o no pain. Will monitor the pt overnight.
--- NOTE | 2016-10-07 04:39 | NUR ---
DIFFICUTY SLEEPING THIS SHIFT WAS MEDICATED WITH ATIVAN 0.5MG PO 0030.
[2016-10-07 07:58] VITALS: BP 146/92
[2016-10-07 11:54] VITALS: BP 140/60
--- NOTE | 2016-10-07 13:31 | CP SOUTH PROGRESS NOTE PSYCH ---
Psych (Inpt) Progress Note Progress Note Include the following elements, when applicable: Involvement in the active treatment of the patient with behavioral observations of the patient and the patient's response to the treatment. Review of the ongoing treatment process in the context of the treatment plan. Indication of how multi-disciplinary staff members are carrying out the treatment plan. Plans for future interventions and recommendations for revision of the treatment plan. Liaison with other physicians/providers. Progress Note: Limits reviewed, discussed progress with nursing staff. Interviewed patient this morning. He evidences significant latency and thought blocking. + Poverty of thought. Says "I'm not doing so well, wait, I guess I'm doing ok". Denies auditory visual hallucinations. Denies SI or HI. MSE: Well-groomed man, appears older than stated age. Dressed appropriately. Cooperative with interview, notable psychomotor retardation. Moderate right sided resting tremor. Speech was monotonous, low amount, low volume, robotic prosody. Mood was "I don't know ", affect was blunted, non- labile. Thought process was impoverished. Thought content with denial of SI or HI. Cognition was grossly intact. Insight and judgment were limited. Vitals reviewed and were within normal limits. No new laboratory results today. A/P: Some improvement in thought disturbance. Continue present management as per primary team.
--- NOTE | 2016-10-07 14:02 | NUR ---
PT IS COMPLIANT AND COOPERATIVE. THIS MORNING PT WAS QUIET AND STAYED TO SELF BUT THROUGHOUT THE AFTERNOON, PT WAS MORE SOICAL WITH STAFF AND PEERS. PT SITS ON THE OUTSKIRTS OF THE GROUP BUT DOES ENGAGE. PT IS ACTIVE IN GROUPS. PT MOOD IS STABLE WITH A CONSTRICTED AFFECT. PT DENIES SI THOUGHTS
--- NOTE | 2016-10-07 14:15 | NUR ---
Pt was visible in the milieu today. His goal was "to be in the community, and socialize with others". He has been interacting with his peers at times, and talking with staff from time to time. He has been spending less time at the fish [employer], and more around his peers. In the milieu pt has been cooperative with staff direction. Pt denies when asked if he has suicidal thoughts, or thoughts to self harm.
[2016-10-07 15:47] VITALS: BP 145/71
[2016-10-07 20:01] VITALS: BP 137/66
--- NOTE | 2016-10-07 23:27 | NUR ---
PATIENT DOING BETTER THIS EVENING;, ATTENDED WRAPUP MEETING AND TALKED ABOUT HIS DAY AND MEETING HIS GOAL TO STAY IN COMMUNITY; VITAL SIGNS WNL; PATIENT ATE DINNER AND HAS BEEN COOPERATIVE WITH TREATMENT PLAN; MOUTH CHECKS CONTINUING FOR MEDICATION SAFETY; PATIENT DENIES S/I AT THIS TIME.
--- NOTE | 2016-10-08 05:44 | NUR ---
PATIENT WAS BRIEFLY UP TO THE BATHROOM ONCE, OTHERWISE SLEPT ALL NIGHT.
[2016-10-08 07:38] VITALS: BP 130/70
--- NOTE | 2016-10-08 11:25 | CP SOUTH PROGRESS NOTE PSYCH ---
Psych (Inpt) Progress Note Progress Note Include the following elements, when applicable: Involvement in the active treatment of the patient with behavioral observations of the patient and the patient's response to the treatment. Review of the ongoing treatment process in the context of the treatment plan. Indication of how multi-disciplinary staff members are carrying out the treatment plan. Plans for future interventions and recommendations for revision of the treatment plan. Liaison with other physicians/providers. Progress Note: Notes reviewed, discussed progress with nursing staff. Interviewed patient this morning. He is similar to yesterday, significant latency and thought blocking, mild poverty of thought. Says he has difficulty remembering things that he has said. He reports he is worried about potential upcoming family meeting. Reports chronic thoughts of no longer being alive but denies suicidal intent or plan. Denies HI. Denies AVH. MSE: Well-groomed man, appears older than stated age. Dressed appropriately. Cooperative with interview, notable psychomotor retardation. Moderate right sided resting tremor. Speech was monotonous, low amount, low volume, robotic prosody. Mood was "eh, not by good ", affect was flat, non- labile. Thought process was impoverished. Thought content with denial of SI or HI. Cognition was grossly intact. Insight and judgment were limited. Vitals reviewed and were within normal limits. No new laboratory results today. A/P: Thought disorder remains similar to yesterday's mental status exam. Continue present management as per primary team. Added a potassium level for Sunday morning labs as requested by primary team.
[2016-10-08 12:08] VITALS: BP 130/79
--- NOTE | 2016-10-08 14:20 | NUR ---
OUT IN COMMUNITY INTERACTING WELL WITH PEERS AND STAFF. MOOD IS STABLE, BLUNTED. NO THOUGHT BLOCKING OR REPORTS OF AH/VH, NO EVIDENCE OF PARONOID THOUGHTS. DENIES THOUGHTS OF SELF HARM WHEN ASKED. IS EATING MEALS WITHOUT ENCOURAGEMENT.
[2016-10-08 16:01] VITALS: BP 138/74
[2016-10-08 19:49] VITALS: BP 142/67
--- NOTE | 2016-10-08 20:04 | NUR ---
PT. SMILING IN [facility] VSS COOPERATIVE WITH CARE TALKING WITH STAFF. HAD VISITORS TODAY WENT WELL. OUT IN COMMUNITY WATCHING TV. NO ISSUES.
[2016-10-09 07:47] VITALS: BP 134/65
[2016-10-09 08:25] LABS: LITHIUM 0.5 mmol/L (0.6-1.2)
[2016-10-09 12:25] VITALS: BP 139/75
--- NOTE | 2016-10-09 14:02 | CP SOUTH PROGRESS NOTE PSYCH ---
Psych (Inpt) Progress Note Progress Note Include the following elements, when applicable: Involvement in the active treatment of the patient with behavioral observations of the patient and the patient's response to the treatment. Review of the ongoing treatment process in the context of the treatment plan. Indication of how multi-disciplinary staff members are carrying out the treatment plan. Plans for future interventions and recommendations for revision of the treatment plan. Liaison with other physicians/providers. Progress Note: [I discussed this patient's progress to date, current mental status, treatment process in the context of the treatment plan, and discharge planning with staff/ team in the daily morning inpatient team meeting. I also met with the patient myself in individual session.] SUBJECTIVE: "Ugh, I guess I'm ok." OBJECTIVE: Current Medications Sig/Dyllan Start time Last Medication Dose Route Stop Time Status Admin Atorvastatin [place] 40 [place] [address]009/23 1700 AC 10/08 PO 1715 Benztropine Mesylate 1 MG 0800,10/03 1015 AC 10/09 PO 0815 Ezetimibe 10 MG DAILY 09/23 1000 AC 10/09 PO 0815 Haloperidol 5 MG 10/10 0800 AC PO Haloperidol 10 MG 10/09 2200 AC PO Haloperidol 5 MG 0800,10/03 1015 DC 10/09 PO 0814 [place] Carbonate 300 MG 10/07 0800 AC 10/09 PO 0942 [place] Carbonate 450 MG 10/06 2200 AC 10/08 PO 2132 Lorazepam 0.5 MG Q8P PRN 10/02 0830 DC 10/07 PO 10/09 0822 0053 Venlafaxine HCl 225 MG DAILY 09/23 1000 AC 10/09 PO 0942 Vital Signs Date Time Temp Pulse Resp B/P Pulse O2 O2 Flow FiO2 Ox Delivery Rate 10/09 1225 86 139/75 10/09 0747 96.8 92 134/65 10/08 1949 97.9 91 142/67 10/08 1601 95 138/74 Lab Magnesium 2.1 mg/dL 10/09/16 07 Potassium 3.9 mmol/L 10/09/16 07 [place] 0.5 mmol/L L 10/09/16 07 ASSESSMENT: Chart, labs, VS reviewed. Met with the patient today, who was A&Ox3. Moderate latency and thought blocking observed, with mild poverty of thought. He reported having a "more social" weekend, reported playing board games ([employer] and Trouble) with other patients. Reported "anxious" mood secondary to +PI of "insurance, I don't think I have it anymore." Patient was perseverative over insurance. He denied sadness/depression. Denied active/passive suicidal ideation , plans and intent. Denied homicidal ideation. Denied AH and VH. Reported intrusive thoughts of "what I think I should say." Reported + sleep and appetite. Reported showering nightly after eating dinner. Thought process appeared impoverished. Thought content was perseverative over insurance/+PI. Cognition appeared grossly intact. Insight and judgment appeared limited. Patient reported tolerating medications well, and denied untoward medication effects. Moderate right sided resting tremor noted (? Li induced) for first time. Had been noted by Dr. Brumfield this past weekend. Will continue to monitor. Patient reported being uneffected by tremor. No evidence of cogwheeling. PLAN: 1. Increase Haldol to 10mg at HS for psychosis. Continue Haldol 5mg QAM. 2. Will consider increase in [place] tomorrow for further mood stabilization. Consider repeat EKG prior to further increase in [place]. 3. Family meeting with patient's sister Mitzi tomorrow afternoon. 4. Continue monitoring the patient on unit for safety, mood and psychosis. 5. If patient's psychiatric condition improves, consider discharge to [facility] and recommend outpatient ECT.
--- NOTE | 2016-10-09 14:09 | NUR ---
PTS AFFECT IS CONSTRICTED AND MOOD IS DEPRESSED. HE IS GUARDED AT TIMES. HE IS GOING TO [facility]OU[facility] AND TAKING HIS MEDS. HIS CONVERSATION IS MORE SPONTANEOUS AND HE DENIES ANY SUICIDAL THOUGHTS
[2016-10-09 16:34] VITALS: BP 143/76
--- NOTE | 2016-10-09 17:39 | SOCIAL WORKER PROG NOTE PSYCH ---
Social Work Progress Note Progress Note Met with Bean today (for Alena Adams, [facility] - primary clincian). Bean presented with a flat, guarded affect and depressed/anxious mood. He denied SI/ HI, denied AH/VH, but did state that he hears "his voice" telling him there is someone waiting for him when he leaves the hospital. He stated he feels everyone on [facility] thinks he is a "phoney." Initially during 1:1 session, Bean was very guarded, seemed to be responding to internal stimuli. During the 1/2hr session, he started to open up more, concerned about his bills (insurance and if his inpatient stay will be covered). He gradually became more open about how he feels the IRS is after him, and someone will be after him when he leaves the hospital. Bean stated he the voice he hears tells him not to tell anyone what he is thinking. Attempted to explain how he can challenge the "voice" and treat it like an abusive "friend", and tell the negative thoughts to stop. Bean appears to have improved slightly, but still entrenched in the negativity fears of finances, insurance, thinking his family doesn't love him, and how he has let family down. He reports having alot of negative thoughts in his head. He doesn't think he can do the IOP, "I am too old now, I don't think I can do it." Provided enouragement and challenged his negative nihilistic thinking. HE reported Anxiety 0/10:8 and depression 0/10:9.
[2016-10-09 19:51] VITALS: BP 143/78
--- NOTE | 2016-10-09 22:32 | NUR ---
PT IS WITHDRAWN AND ISOLATIVE, STAYING IN [place], BUT AWAY FROM PEERS AND WITH MINIMAL INTERACTION WITH PEERS/STAFF. PT MOOD IS STABLE, AFFECT IS FLAT/CONSTRICTED, COMMUNICATION IS SPARSE, AND APPETITE IS NORMAL. PT DENIES SI AT THIS TIME.
--- NOTE | 2016-10-10 06:12 | NUR ---
PATIENT SLEPT ALL NIGHT.
[2016-10-10 08:16] VITALS: BP 152/76
[2016-10-10 13:32] VITALS: BP 135/67
--- NOTE | 2016-10-10 14:36 | NUR ---
PATIENT SLIGHTLY LESS PARANOID TODAY. ATTENDING GROUPS, DISCUSSING CONCERNS WITH STAFF, NEEDED REASSURANCE AT TIMES. LESS FOCUS ON FINANCES AND INSURANCE.
--- NOTE | 2016-10-10 15:27 | CP SOUTH PROGRESS NOTE PSYCH ---
Psych (Inpt) Progress Note Progress Note Include the following elements, when applicable: Involvement in the active treatment of the patient with behavioral observations of the patient and the patient's response to the treatment. Review of the ongoing treatment process in the context of the treatment plan. Indication of how multi-disciplinary staff members are carrying out the treatment plan. Plans for future interventions and recommendations for revision of the treatment plan. Liaison with other physicians/providers. Progress Note: [I discussed this patient's progress to date, current mental status, treatment process in the context of the treatment plan, and discharge planning with staff/ team in the daily morning inpatient team meeting. I also met with the patient myself in individual session.] SUBJECTIVE: "I had a better day today." OBJECTIVE: Current Medications Sig/Dyllan Start time Last Medication Dose Route Stop Time Status Admin Atorvastatin Calcium 40 MG 1700 09/23 1700 AC 10/09 PO 1630 Benztropine Mesylate 1 MG 0800,10/03 1015 AC 10/10 PO 0818 Ezetimibe 10 MG DAILY 09/23 1000 AC 10/10 PO 0817 Haloperidol 5 MG 10/10 0800 AC 10/10 PO 0818 Haloperidol 10 MG 10/09 2200 AC 10/09 PO 2140 [place] Carbonate 300 MG 10/07 0800 AC 10/10 PO 0818 [place] Carbonate 450 MG 10/06 2200 AC 10/09 PO 2140 Venlafaxine HCl 225 MG DAILY 09/23 1000 AC 10/10 PO 0817 Vital Signs Date Time Temp Pulse Resp B/P Pulse O2 O2 Flow FiO2 Ox Delivery Rate 10/10 1332 85 135/67 10/10 0816 97.0 99 152/76 10/09 1951 97.7 94 143/78 10/09 1634 89 143/ ASSESSMENT: Met with the patient today, together with his two sisters, and Alena Adams LCSW for a family meeting. The patient's treatment progress to date, medication regimen, level of safety, psychiatric symptoms, and discharge planning were reviewed. Patient's sister reported a noticable improvement in patient's psychiatric symptoms since initial inpatient hospitalization on [facility]. Patient's two sisters were very supportive, and agreeable to supervising patient once discharged and assist with medication administration. Patient's sister Cheyenne, who lives across the street from , welcomed the patient to live with her post- discharge. The patient was agreeable to this. Both sisters expressed willingness to assist transporting the patient to/from [facility] appointments, and to help him manage his finances and medications post-discharge. ECT was additionally reviewed with the patient and his sisters as being a recommended alternative treatment for depression and psychosis. Reviewed the risk/benefit/SEs of ECT treatment with the patient and his sisters. Patient verbalized understanding of ECT and was not willing to pursue at present. Patient was agreeable to [facility] recommendation post-discharge, as were his two sisters. Patient's sisters expressed no acute concerns over the patient discharging tomorrow into their care, with aftercare plan to pursue treatment in [facility]. On encounter with the patient today, he remained perseverative over his finances and the status of his insurance coverage. Continued to have some paranoia that his bills have not been paid and his insurance will not cover medical services, despite receiving reassurance from his sister that his insurance remains active and his bills have been paid. He has not acted out on these paranoid thoughts during hospital course. Speech remained somewhat delayed at times, but overall more spontaneous than through previous hospital course. Mood "ok." Affect calm and constricted. Slight thought blocking noted. Thought process appeared less impoverished than yesterday. Cognition appeared grossly intact. Insight and judgement remain slightly limited, however improved since initial hospital presentation. He denied auditory and visual hallucinations. He denied acute symptoms of anxiety and depression. He denied active and passive suicidal ideation, plans and intent. He denied homicidal ideation. He denied feeling hopeless and worthless. Reported feeling "some" helplessness and guiltiness. Reported appetite and sleep were good. Patient completing ADLs independently. Patient reported tolerating increase in Haldol from 5mg QHS to 10mg QHS well, and denied untoward medication effects. No change in moderate right sided resting tremor. Patient continues to report being uneffected by tremor. No evidence of cogwheeling or abnormal involuntary movements, besides for right sided resting tremor, noted over the weekend. Patient not agreeable to further increase [place] at this time. Will continue current dose, and defer need for increase to IOP level of care. PLAN: 1. Continue current medications. 2. Tentative discharge tomorrow, with f/u to [facility]. 3. Patient to discharge into the care of his sisters' and will reside with sister Cheyenne. 4. Continue monitoring the patient on unit for safety, mood and psychosis.
[2016-10-10 16:16] VITALS: BP 139/61
--- NOTE | 2016-10-10 16:16 | SOCIAL WORKER PROG TO GOALS ---
Progress Toward Goals Strengths/Capabilities: retired/worked 40+ yrs at [employer]. Owns home. Engaged with lawson OROURKE for several yrs. 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 Progress: Patient continues to show some improvement. He does continue to perseverate on financial fears such as insurance coverage, his house being foreclosed, and Social Security. Patient continues to have less thought blocking, is less disorganized and is able to hold conversation.
--- NOTE | 2016-10-10 16:23 | SOCIAL WORKER PROG NOTE PSYCH ---
Social Work Progress Note Progress Note Patient had family meeting today with his two sisters, Mitzi and Cheyenne (Betzy ). Patients sisters are great support for patient and both report that they have noticed improvement in patient since he was admitted to the hospital. Cheyenne lives across the street from [place] and Mitzi lives in [place]. Both are willing to take him in temporarily or as long as he needs/wants and also manage/ monitor his meds. They both agree that patient should refrain from driving at this time until he shows further progress and are willing to provide him transportation wherever needed. They will also help him sort out his finances that he is concerned greatly about. Patient still does perseverate on financial issues such as insurance converage and his house going into foreclosure. Patients family is willing to help monitor his finances and show to patient that he is financially stable at present and there are no real concerns. Family is aware that patient has been recommended to IOP at post discharge. Patient and family are in agreement with this aftercare plan and will provide transportation to and from treatment. We discussed the alternativeand option of ECT and patient was resistent and able to acknowledge that he knew what ECT was. We explained to the family that ECT is another form of treatment that can be done inpatient or outpatient and has been shown to be very beneficial to treat depression and psychosis. It was stressed that this is just another alternative and something they could look into if patient was interested in pursuing. Family is aware that we are tentatively planning for discharge from the hospital tomorrow and they are willing to pick him up and take him to IOP evaluation.
[2016-10-10 20:10] VITALS: BP 144/70
--- NOTE | 2016-10-10 21:43 | NUR ---
PT IS ISOLATIVE AND WITHDRAWN. THOUGH IN [place], PT IS NOT INTERACTING MUCH, IF AT ALL WITH OTHERS PATIENTS. PT IS RESPONSIVE TO STAFF WHEN DIRECTLY ENGAGED, AND IS COOPERATIVE AND COMPLIANT WITH UNIT RULES. PT MOOD IS STABLE, AFFECT IS FLAT/CONSTRICTED, COMMUNICATION IS NORMAL, BUT SPARSE, AND APPETITE IS NORMAL. PT DENIES SI AT THIS TIME.
--- NOTE | 2016-10-11 04:44 | NUR ---
SLEPT WELL NO ISSUES.
[2016-10-11 07:43] VITALS: BP 134/64
--- NOTE | 2016-10-11 09:06 | NUR ---
PT DC TODAY, FOLLOW UP AT [facility] 1245 TODAY. PT IS LESS ANXIOUS, LESS DEPRESSED. HE IS LESS FLAT. PT IS LESS PARANOID- HE DOES NOT FEAR ANYONE OR ANYTHING AT HOME OR IN THE COMMUNITY. THE PATIENT DENIES SI- HE IS AWARE OF RESOURCES TO CONTACT IF HE FEELS SUICIDAL, OVERWHELMINGLY ANXIOUS, OR SIGNIFICANTLY DEPRESSED. PT IS EATING AND SLEEPING WNL. PT DENIES HI, AH, OR VH.
[2016-10-11] MEDS ORDERED: ZETIA10 M1 PO (11:52)
[2016-10-11] MEDS ORDERED: ATORVASTATIN CA40 M1 PO (11:54)
[2016-10-11] MEDS ORDERED: HALOPERIDOL5 MG PO ×2 (11:55→11:56)
[2016-10-11] MEDS ORDERED: BENZTROPINE MESY1 M1 PO (11:57)
[2016-10-11] MEDS ORDERED: LITHIUM CARBON150 M1 PO ×2 (12:00→12:01)
--- NOTE | 2016-10-11 13:16 | SOCIAL WORKER PROG NOTE PSYCH ---
Social Work Progress Note Progress Note Patient to discharge the hospital today. Patient denies SI/HI/AH/VH at present. Patient still presents with some worry about finances, specifically today talking about insurance covering IOP and his medications. Patients sister will be attending IOP intake today with patient. Patient will be residing between the homes of his 2 sisters and they both have agreed to monitor his medications and transport him to and from groups. Patient reported some anxiety today in regards to discharge but was able to contract for safety and is in agreement with discharge plan.
--- NOTE | 2016-10-11 13:42 | CP SOUTH PROGRESS NOTE PSYCH ---
Psych (Inpt) Progress Note Progress Note Include the following elements, when applicable: Involvement in the active treatment of the patient with behavioral observations of the patient and the patient's response to the treatment. Review of the ongoing treatment process in the context of the treatment plan. Indication of how multi-disciplinary staff members are carrying out the treatment plan. Plans for future interventions and recommendations for revision of the treatment plan. Liaison with other physicians/providers. Progress Note: Medication list reviewed. Case and treatment plan discussed in team meeting. Staff reports that the patient is doing better. Slept. Communicating better. Taking medications. Eating. Had successful family meeting with 2 sisters yesterday. Has IOP intake at 12:45 pm. Patient seen at 10:30 a.m. Ambulatory. Neatly dressed, sitting in a chair. States "I'm fine." Affect is calm and blunted to flat. Has some response latency. "Feels a little hesitant, a little up in the air about the release ( discharge)." Anxious about it. Mood is "calm, I guess." Sad: probably ~610. Anxiety /10. Feels hopeless, helpless, worthless and guilty. Denies current active and passive SI. SI is intermittent but denies plan or intent. Denies HI , AH, VH. Still believes he has done bad things but reports that these thoughts have improved. Reports sleeping well. Describes appetite and energy as good. Tolerating medications but feels sleepy now and then. Appears awake and alert. Feels ready and safe for discharge. IMPRESSION: Condition improved. Okay for discharge to IOP intake then home. Family will monitor him closely. [facility] will not have Cogentin or Haldol until tomorrow. I therefore also wrote prescriptions for doses of these for tonight and tomorrow morning, to be filled by [facility].
--- NOTE | 2016-10-11 15:27 | DISCHARGE SUMMARY REPORT-PSYCH ---
Visit Information Visit Dates/Diagnosis' Admission Date: 09/22/16 Discharge Date: 10/11/16 Reason for Admission: Delusions of guilt, depression. Psy Discharge Primary Diag: Major depression, rec. severe w/psychotic fx's Psy Discharge Secondary Diag: Hyperlipidemia PVCs Hospital Course Significant Lab Findings: Lab Anion Gap 17 H 09/30/16 1201 Chloride 97 mmol/L L 09/30/16 1201 Glucose 109 mg/dL H 09/30/16 1201 TSH &T3 &Free T4 Intrp 0.586 uIU/mL 09/21/16 1102 MCH 31.3 PG H 09/21/16 1102 [place] 0.3 mmol/L L 10/01/16 0615 [place] 0.5 mmol/L L 10/06/16 0630 [place] 0.5 mmol/L L 10/09/16 0700 Hyaline Casts 1-3 H 10/04/16 1607 Ur Epithelial Cells RARE 10/04/16 1607 Ur Leukocyte Esterase NEG 10/04/16 1607 Ur Microscopic SEDIMENT EXAMINED 10/04/16 1607 Ur Specific [place] 1.020 10/04/16 1607 Urinalysis PACKD H 10/04/16 1607 Urine Bilirubin NEG 10/04/16 1607 Urine Clarity CLDY H 10/04/16 1607 Urine Color YEL 10/04/16 1607 Urine Glucose NEG MG/DL 10/04/16 1607 Urine Hemoglobin NEG 10/04/16 1607 Urine Ketones TRACE H 10/04/16 1607 Urine Mucus RARE 10/04/16 1607 Urine Nitrite NEG 10/04/16 1607 Urine Protein TRACE MG/DL H 10/04/16 1607 Urine RBC RARE /HPF 10/04/16 1607 Urine Urobilinogen 2.0 EU/dl H 10/04/16 1607 Urine pH 7.0 10/04/16 1607 Echocardiogram 10/05/16: CONCLUSIONS Normal global left ventricular size, wall thickness, systolic function with no obvious regional wall motion abnormalities. Normal left ventricular ejection fraction visually estimated at > 60%. Trace tricuspid regurgitation. No evidence of pulmonary hypertension. EKG 10/06/16: Sinus rhythm at a rate of 89, multiple premature complexes, vent & supraven, no significant change since previous tracing, abnormal ECG, QT 388, QTc 473. Course Complications: Tachycardia, abnormal EKG. Consultations: Please see brief admit note by Dr. Caban, PCP. Please see cardiology consultation by Dr. Neves. Allergies: Coded Allergies: No Known Allergies (11/12/15) Hospital Course/TX Response: The patient was monitored on the unit for safety, psychosis and mood disorder. Zyprexa was restarted. Effexor was continued. The patient frequently displayed depressed mood and response latency. He had guilty delusions. [place] was added for depressed mood, SI and mood stabilization. He did not show a robust response to Zyprexa, so this was changed to Haldol + Cogentin. The patient was advised to consider outpatient ECT, but he was against it. Below is my progress note from date of discharge, 10/11/16: Medication list reviewed. Case and treatment plan discussed in team meeting. Staff reports that the patient is doing better. Slept. Communicating better. Taking medications. Eating. Had successful family meeting with 2 sisters yesterday. Has IOP intake at 12:45 pm. Patient seen at 10:30 a.m. Ambulatory. Neatly dressed, sitting in a chair. States "I'm fine." Affect is calm and blunted to flat. Has some response latency. "Feels a little hesitant, a little up in the air about the release ( discharge)." Anxious about it. Mood is "calm, I guess." Sad: probably ~6/10. Anxiety 8/10. Feels hopeless, helpless, worthless and guilty. Denies current active and passive SI. SI is intermittent but denies plan or intent. Denies HI , AH, VH. Still believes he has done bad things but reports that these thoughts have improved. Reports sleeping well. Describes appetite and energy as good. Tolerating medications but feels sleepy now and then. Appears awake and alert. Feels ready and safe for discharge. IMPRESSION: Condition improved. Okay for discharge to IOP intake then home. Family will monitor him closely. [facility] will not have Cogentin or Haldol until tomorrow. I therefore also wrote prescriptions for doses of these for tonight and tomorrow morning, to be filled by [facility]. Discharge HBIPS - Tobacco Use Treatment Offered Post DC Medications Offered: NA-No Tob Use >30 days Post DC Tobacco Treatment Plan: NA-No Tobacco use >30days - EtOH/Drug Use D/O Treatment Offered Post DC Medications Offered: NA-No EtOH/Drug Use D/O Post DC EtOH/SubAbuse [place] Plan: NA-No EtOH/Drug Use D/O Metabolic Screening - Screen if on a Neuroleptic Medication - Metabolic screening should include: - Blood Pressure, BMI, Glucose or Hgb A1c, & a - Lipid profile from within the past 365 days. Metabolic Screening () Not Applicable, patient not on a neuroleptic. OR () Patient on a neuroleptic(s) . Enter below results for Glucose or Hemoglobin A1C, and lipid panel if obtained during the last 365 days. BMI: 25.000 Blood Pressure: 134/64 Laboratory Results (If applicable): Lab Cholesterol 187 MG/DL 08/01/16 1010 Cholesterol/HDL Ratio 4 % 08/01/16 1010 Glucose 109 mg/dL H 09/30/16 1201 HDL Cholesterol 45 mg/dL 08/01/16 1010 LDL Cholesterol, Calc 99 mg/dL 08/01/16 1010 Triglycerides 217 mg/dL H 08/01/16 1010 Discharge Instructions General Discharge Information Discharge Medications: Discharge Medications- (Dose, route, freq, indication): Prescritpions for all medications below (except Effexor) were called in to [facility], for 14 days' supply, no refills. Atorvastatin Calcium Dose: ORAL, 5 PM for Qty: 14 Called in to (Atorvastatin 40 Milligram hyperlipidemia Refills: 0 Pharm 1 Calcium) 40 MG Last Taken: TABLET 10/10/16 Time: 1700 Haloperidol Dose: ORAL, DAILY @8 AM for Qty: 14 Called in to (Haloperidol) 5 MG 5 Milligram for unwanted thoughts Refills: 0 Pharm 1 TABLET Last Taken: 10/11/16 Time: 0800 Haloperidol Dose: ORAL, 2200 for for Qty: 14 Called in to (Haloperidol) 5 MG 10 Milligram unwanted thoughts Refills: 0 Pharm 1 TABLET Last Taken: 10/10/16 Time: 2200 [place] Carbonate Dose: ORAL, DAILY @8 AM for Qty: 14 Called in to ([place] Carbonate) 300 Milligram mood stability Refills: 0 Pharm 1 150 MG CAPSULE Last Taken: 10/11/16 Time: 0800 [place] Carbonate Dose: ORAL, 2200 for for mood Qty: 14 Called in to ([place] Carbonate) 450 Milligram stability Refills: 0 Pharm 1 150 MG CAPSULE Last Taken: 10/10/16 Time: 2200 Benztropine Mesylate Dose: ORAL, 0800,2200 for to Qty: 28 Called in to (Benztropine 1 Milligram prevent EPS side-effects Refills: 0 Pharm 1 Mesylate) 1 MG Last Taken: TABLET 10/11/16 Time: 0800 Ezetimibe (Zetia) 10 Dose: ORAL, DAILY for Qty: 14 Printed MG TABLET 10 Milligram Hyperlipidemia Refills: 0 Last Taken: 10/11 Time: 0800 Also, since [facility] will not have Haldol and Cogentin until tomorrow, Rx's were issued to [facility] for: Haldol 5 mg, #3, 1 po qAM and 2 po qhs, NR (Haldol is for unwanted thoughts). Cogentin 1 mg, #2, 1 po bid, NR. (Cogentin is to prevent EPS side-effects). CONTINUE taking these Home Medications: Venlafaxine HCl (Effexor Dose: ORAL, DAILY for XR) 75 MG CAP.ER.24H 225 Milligram depression,anxiety Last Taken: 10/11/16 Time: 0800 THE PATIENT IS NOW OFF OF ZYPREXA AND CRESTOR. Multiple Neuroleptics: ([x]) Not Applicable OR Document below three failed attempts at monotherapy, or a plan to taper to monotherapy, or augmentation of Clozapine. () Patient's Diet: Regular. Patient's Activity: No restrictions. DC Disposition: The patient will live temporarily with his family (for supervision). He has his own home. Recommendations: Patient was advised to follow up with Dr. Caban, PCP, within the next couple of weeks. Patient needs follow up for trace protein in urine and urobilinogen 2.0. He should have QT/QTc monitored on EKG. Referred To: [facility] 10/11/16 at 12:45 pm. Copies To: TAWNYA ALTAMIRANO,ELÍAS; CHEY ALTAMIRANO,ENRRIQUE Lowe; Intensive Outpt Psychiatry; [facility], [facility]; MAXIMILIANO SIMPSONMAYTE
== END 2016-10-11 12:59 | DRG 885 ==
LOC: ERH 08:46 → CP SOUTH 09-22 10:35 → ENPENDDIS 09-22 10:35 → ERHI 09-22 10:35 → CP SOUTH 09-22 11:09
PROVIDERS: Emergency Medicine; Registered Nurse Psychiatric/Mental Health; ADMIT Psychiatry & Neurology Psychiatry
DX: F33.3 Major depressive disorder, recurrent, severe with psychotic symptoms (principal); E78.5 Hyperlipidemia, unspecified; I49.3 Ventricular premature depolarization
CPT/HCPCS: 36415; 80307; 81001; 93005; 93010; 93306; G0463; G0480; J3230